=== PATIENT | male | born 1980 | race Caucasian/White ===

== ENCOUNTER 2018-04-17 10:11 | Inpatient (IN) | payer OTHER ==
[2018-04-17] MEDS ORDERED: Propofol 1,000 MG/100 ML VIAL IV ONE ×2 (10:17→15:37)
[2018-04-17 10:34] LABS: Bilirubin Negative (Negative); Blood, Urine Trace (Negative); Clarity CLEAR (Clear); Glucose, Urine (Dipstick) Negative (Negative); Leukocyte Negative (Negative); Nitrite Negative (Negative); Protein, Urine (Dipstick) 30 mg/dL (Neg-Trace)
[2018-04-17 10:36] LABS: Bacteria/HPF None Seen HPF (None Seen); Hyaline Casts/LPF 0-3 HYALINE CAST LPF (0-3 Hyaline); Pathc Cast-AUWi Flag 0.14 (0-2.49); RBC/HPF 0-3 HPF (0-3); Squamous Epithelial None Seen HPF (0-3); WBC/HPF 0-3 HPF (0-3)
[2018-04-17 10:37] LABS: Hemoglobin 15.6 g/dL (14.0-18.0); Mean Corpuscular HGB CONC 34.6 g/dL (32.0-36.0); Mean Corpuscular Hemoglobin 33.8 pg (27.0-31.0); Mean Corpuscular Volume 97.6 fl (80.0-94.0); Mean Platelet Volume 7.3 fL (7.4-10.4); Platelet Count 196 thou/uL (130-400); RBC Distribution Width 11.4 % (11.5-14.5); Red Blood Cell (RBC) Count 4.63 mill/uL (4.70-6.10); White Blood Cell (WBC) Count 19.2 thou/uL (4.8-10.8)
[2018-04-17 10:41] LABS: INR-International Normal Ratio 1.1; Prothrombin Time 14.1 SEC (12.0-14.7)
[2018-04-17 10:42] LABS: PTT 24.5 SEC (22.9-36.1)
[2018-04-17] MEDS ORDERED: manNITOL 20% 500 ML ONE (10:44)
[2018-04-17 10:54] LABS: Amphetamine Not Detected (NotDetected); Barbiturates Screen Not Detected (NotDetected); Benzodiazepine Screen Not Detected (NotDetected); Cocaine Metabolite Screen Not Detected (NotDetected); Medtox Control Line Valid? VALID (VALID); Medtox Reader # READER 1; Methadone Not Detected (NotDetected); Methamphetamine Not Detected (NotDetected); Opiate Screen Detected (NotDetected); Oxycodone Screen Not Detected (NotDetected); Phencyclidine (PCP) Not Detected (NotDetected); THC/Cannabinoid Screen Not Detected (NotDetected); Tricyclic Screen Not Detected (NotDetected)
[2018-04-17] MEDS ORDERED: Fentanyl 100 MCG/2 ML VIAL ONE ×2 (10:56→11:04)
[2018-04-17 10:58] LABS: Actual Bicarbonate (HCO3a) 19.5 mEq/L (22-28); Base Excess (BEa) -6.2 mEq/L (-2.0 to +3.0); CO2 Tension 39.4 mmHg (35.0-45.0); Hemoglobin (Hb) 13.8 g/dL (14.0-18.0); O2 Tension (PaO2) 306.4 mmHg (80.0-100.0); pH, Arterial 7.31 (7.35-7.45)
[2018-04-17 10:59] LABS: Analyzer IN Cardio ER; Calcium, Ionized 1.1 mmol/L (1.12-1.30); Puncture Site LBA
[2018-04-17] MEDS ORDERED: Sodium Chloride 0.9% 20 ML ONE (10:59)
[2018-04-17] MEDS ORDERED: Lidocaine 0.5%/Epinephrine 1:200,000 50 ml Vial ONE (10:59)
[2018-04-17] MEDS ORDERED: Thrombin 5000 UNITS/5 ML VIAL ONE (11:00)
[2018-04-17] MEDS ORDERED: Bacitracin Zinc Ointment 30 gm TUBE ONE (11:00)
[2018-04-17 11:01] LABS: Glucose 193 mg/dL (70-105)
[2018-04-17] MEDS ORDERED: CEFAZOLIN/Water 2 GM/20 ML SYRINGE ONE (11:02)
[2018-04-17 11:03] LABS: ALT (SGPT) 46 U/L (8-55); AST (SGOT) 43 U/L (5-34); Acetaminophen Less than 6.0 mcg/mL (10.0-30.0); Albumin 4.4 g/dL (3.5-5.0); Alcohol Less than 10 mg/dL (Less than 10); Alkaline Phosphatase 106 U/L (40-150); Anion Gap 19 mmol/L (10-20); BUN (Urea Nitrogen) 11 mg/dL (8.9-20.6); Bilirubin, Total 0.5 mg/dL (0.2-1.2); Calc. Creatinine Clearance 0 mL/min (70-130); Calcium 9.5 mg/dL (7.8-10.44); Carbon Dioxide 18 mmol/L (22-29); Chloride 105 mmol/L (98-107); Estimated GFR-MDRD Greater than 90; Globulin 3.3 g/dL (2.4-3.5); Protein, Total 7.7 g/dL (6.0-8.3); Salicylate Less than 8.0 mg/dL (15.0-30.0); Sodium 139 mmol/L (136-145)
[2018-04-17] MEDS ORDERED: Vecuronium 10 MG VIAL ONE (11:18)
[2018-04-17] MEDS ORDERED: Water For Inject, Bacteriostat 30 ML ONE (11:19)
--- NOTE | 2018-04-17 11:20 | RAD ---
PORTABLE CHEST 1 VIEW: Date: 04/17/18 Time: 1019 hours HISTORY: Respiratory failure. FINDINGS/IMPRESSION: There is an endotracheal tube with tip at level of clavicular heads and nasogastric tube can be trace d into the level of the distal stomach. Heart size is normal. No lobar consolidation, pneumothoraces, or large effusions are seen. POS: [facility]
[2018-04-17 11:23] LABS: Band 2 % (5-11); Eosinophils 3 % (0-10); Lymphocytes 31 % (21-51); MDiff Complete? YES; Monocytes 10 % (0-10); Neutrophil 50 % (42-75); PLT Morphology Comment Appears Adequate; Polychromasia SLIGHT = 2-3 cells (100X) (0-2/hpf); Reactive Lymphocytes 4 % (0-10)
[2018-04-17] MEDS ORDERED: Potassium Chloride 40 MEQ in Premix Bag 1 BAG IVPB SCH (11:30)
--- NOTE | 2018-04-17 11:41 | CT ---
CT BRAIN WITHOUT CONTRAST: HISTORY: Level I trauma. Head trauma. Altered mental status. FINDINGS: There is a large right acute epidural hematoma along the right temporal and parietal lobes. The larg er portion, along the right temporoparietal lobe, measures about 7 x 3 cm. Adjacent calvarial fractu re of the right temporal bone is seen. There is a tiny amount of pneumocephalus. There is a 12 mm m idline shift to the left. There are multiple fractures involving the facial bones. Fractures also i nvolve the base of the skull and the right sphenoid bone in the lateral lobe of the left sphenoid sin us. There is fluid in the left maxillary sinuses and in both ethmoid and sphenoid sinuses. There is soft tissue air in the visualized portions of the face and periorbital regions on either side and pe riorbital soft tissue swelling, predominantly on the left. IMPRESSION: Acute right epidural hematoma with midline shift to the left; calvarial and facial bone fractures. Discussed over the telephone with Dr. Freeman at 10:49 a.m. CODE CR POS: [facility]
--- NOTE | 2018-04-17 11:43 | CT ---
CT CERVICAL SPINE NONCONTRAST: HISTORY: Neck injury. FINDINGS: Intracranial hematoma and mastoid injuries are partially visualized and better detailed on separate e xams. Vertebral body height and alignment of the cervical spine are intact. The cervicothoracic junction i s maintained. There is minimal displacement of fragmentation of the left lateral process of C6. This extends to th e posterolateral aspect of the vertebral canal. Endotracheal catheter and nasogastric tube are partially visualized. No other fractures are apparent . IMPRESSION: Comminuted, minimally displaced fracture involving the C6 left transverse process. No unstable injur y is apparent. The findings were called to Dr. Freeman at 10:54 hours. CODE CR POS: [facility]
[2018-04-17] MEDS ORDERED: Albumin 5% 500 ML ONE (12:10)
--- NOTE | 2018-04-17 12:13 | RAD ---
PORTABLE CHEST: HISTORY: Line placement. COMPARISON: Earlier examination from the same day. FINDINGS: Endotracheal and NG tubes remain in position. A left subclavian line is seen. The catheter tip is o verlying the superior vena cava. No signs of pneumothorax. IMPRESSION: Placement of left subclavian line. No signs of pneumothorax on this supine film. POS: [facility]
--- NOTE | 2018-04-17 12:31 | CT ---
CT FACIAL BONES PERFORMED WITHOUT CONTRAST ENHANCEMENT: HISTORY: Machinery accident. The patient was hit with a piece of metal above the left eye. FINDINGS: There is evidence of extensive facial bone trauma. Changes are more left-sided. On the right side, the right zygomatic arch is intact. There is air within the soft tissues in a lef t periorbital location. This was associated with a fracture, which involves the lateral wall of the left orbit and extends to involve the frontal process of the zygomatic bone. Along the superior aspe ct of the orbit, there actually appears to be some air within the extraconal space of the orbit. The re is a nondisplaced fracture of the medial wall of the right orbit, and there is an air-fluid level within the right frontal sinus. This is associated with posterior wall frontal sinus fractures, whic h are slightly more right-sided. No fracture of the right maxilla. No orbita floor fracture on the right. The left side shows much more extensive injury. This includes a zygomatic arch fracture, which is mi nimally displaced, anterior wall and lateral wall, as well as medial wall maxillary sinus fractures, and a blow-out fracture of the orbital floor with a somewhat inferiorly displaced fragment. I do not see any obvious entrapment of extraocular muscles. The defect in the orbital floor is approximately 6 mm. The fracture also involves the supraorbital rim on the left. There is also medial wall orbit al and lateral wall orbital fractures. Fracture lines are also seen to extend into the sphenoid bone , with the fracture on the right extending into the right middle cranial fossa, and then communicatin g with the posterior ethmoid air cells and sphenoid air cells on the right. There is a more signific ant fracture of the lateral wall of the left side of the sphenoid, where there is comminution and an inwardly displaced bone fragment extending into the sphenoid sinus, causing a 6 mm gap, with direct c ommunication with the temporal lobe. There is also opacification of the right mastoid air cells and middle ear. A temporal bone fracture is seen, and the large epidural hematoma on the right is noted, with mass effect. Please refer to the CT report for additional findings. Fracture is also seen to involve the left temporal bone, at the level of the middle cranial fossa. The pterygoid processes are intact. No mandibular fracture is seen. IMPRESSION: Extensive facial bone trauma, which is more left-sided, as discussed above. POS: [facility]
--- NOTE | 2018-04-17 12:35 | OP ---
DATE OF PROCEDURE: 04/17/2018 PREOPERATIVE DIAGNOSES: 1. Acute severe traumatic brain injury. 2. Large right epidural hematoma with cerebral edema. 3. Acute posttraumatic respiratory failure. 4. Acute lactic acidosis. POSTOPERATIVE DIAGNOSES: 1. Acute severe traumatic brain injury. 2. Large right epidural hematoma with cerebral edema. 3. Acute posttraumatic respiratory failure. 4. Acute lactic acidosis. PROCEDURES PERFORMED: Placement of triple lumen left subclavian central venous catheter. INDICATIONS FOR PROCEDURE: A 37-year-old man suffered a blunt trauma to the head with the aforementi oned injuries. Decision was made to place a central venous catheter for hemodynamic monitoring and to facilitate the rapeutic interventions. DESCRIPTION OF PROCEDURE: The patient was placed in a supine position. Left chest wall sterilely pr epped and draped in usual fashion. The skin below the left clavicle was anesthetized with 1% lidocai ne. The left subclavian vein was cannulated with an 18-gauge introducer needle returning dark venous blood. Guidewire was passed through this needle and advanced into the left subclavian vein without resistance. Needle was withdrawn over the guidewire. A stab incision was made adjacent to the guide wire using an 11 scalpel. A dilator was passed over the guidewire dilating subcutaneous tissues. Th e dilator was removed and a triple-lumen central venous catheter was advanced over the guidewire and placed in the left subclavian vein without resistance and stopping at the 18 cm alondra. The guidewire was removed. Dark venous blood was aspirated from all 3 ports which were then individually flushed w ith saline. Catheter secured to the anterior chest wall using 3-0 silk suture at 2 points. Sterile dressings were applied. The patient tolerated this operation without any apparent complication and r emains hemodynamically stable following completion of the procedure. Chest x-ray confirmed proper pl acement and no pneumothorax present.
--- NOTE | 2018-04-17 13:02 | HP ---
DATE OF ADMISSION: 04/17/2018 HISTORY OF PRESENT ILLNESS: Mr. Arceo is a 37-year-old man who was struck in the head and face by a heavy metal object while at work. He suffered loss of consciousness. He was brought by EMS to [facility] in [place], [place]. Patient's initial [place] coma scale at the scene was reported at 9. H e arrived combative and agitated with a [place] coma scale of E4 V3 M5. Due to rapidly deteriorating neurological function, patient was electively intubated to protect his airway and to facilitate a ti igna workup. He had severe external markers of trauma about his head and face. PAST MEDICAL HISTORY: Obtained from chart review, which reveals history of chronic depression and PT SD. PAST SURGICAL HISTORY: The patient has had no significant past surgeries. SOCIAL HISTORY: He is a who suffers from PTSD. He currently works in a [employer]. He smokes half pack of cigarettes per day for approximately 16 years. He indulges in a moderate amount of ethanol occasionally. He has no history of illicit drug abuse. FAMILY HISTORY: Unknown as the patient was adopted. PREHOSPITAL MEDICATIONS: Unknown. ALLERGIES: Patient has no known drug allergies. REVIEW OF SYSTEMS: Could not be obtained as patient has a progressively worsening neurological funct ion and was in the process of rapid sequence intubation upon my arrival. PHYSICAL EXAMINATION: VITAL SIGNS: Initial vital signs include blood pressure 141/64, pulse 101, respiratory rate 20, temp erature 95.4 degrees Fahrenheit, oxygen saturation was 100% being bagged. HEENT: Reveals a 5 cm left supraorbital scalp laceration. The patient has bilateral periorbital ecc hymosis and swelling. Both pupils equally round and reactive to light at 2 mm bilaterally. He has l eft-sided forehead cephalohematoma present. NECK: Cervical spine immobilized in a C-collar, maintaining neutral position as the patient has dist racting injuries. Trachea is otherwise midline. CHEST: Chest wall is stable. No gross deformities or step-offs are present. HEART: Reveals regular rate and rhythm, no murmurs or gallops auscultated. LUNGS: Clear to auscultation bilaterally. Breathing regular and unlabored. ABDOMEN: Soft, nontender, nondistended. Liver and spleen nonpalpable below costal margins. EXTREMITIES: Reveals 2+ radial and pedal pulses bilaterally. No ankle edema is present. NEUROLOGIC: Reveals no focal deficits, although [place] coma scale suggest rapidly declining neurolo gical function secondary to blunt head trauma. Thoracic and lumbar spine palpated free of any abnorm alities or step-offs once patient was log rolled. MUSCULOSKELETAL: Prior to intubation revealed a 5/5 muscle strength in bilateral upper and lower ext remities. PERTINENT LABORATORY DATA: Today includes a CBC with 19,200 white blood cells, hemoglobin 15.6, mary ann tocrit is 45.2, and platelet count is 196,000. PTT and INR normal at 24.5 seconds and 1.1 respective ly. Metabolic profile: Sodium 139, potassium is 3.0, chloride is 105, bicarb 18, BUN 11, creatinine 0.89, glucose 193. Lactic acid 7.2, total bilirubin 0.5, AST and ALT 43 and 46 respectively. Urina lysis was essentially unremarkable. PERTINENT RADIOGRAPHIC FINDINGS: Includes a chest x-ray which revealed no acute intrathoracic pathol ogy. CT scan of the brain is remarkable for a 7 x 3 cm large right temporal epidural hematoma with a 12 mm right to left midline shift. Also noted is multiple skull base fractures. CT scan of the cer vical spine reveals a nondisplaced left transverse process fracture of C6. Facial CT scan reveals mu ltiple facial fractures including bilateral orbital fractures, right alevism, bilateral sphenoid sinus and left zygomatic/maxillary complex fractures. IMPRESSION: 1. Status post blunt trauma to the head. 2. Acute severe traumatic brain injury secondary to a large right temporal epidural hematoma with 12 mm right to left midline shift. 3. Cerebral edema. 4. Multiple facial fractures. 5. Multiple skull base fractures. 6. A 5 cm left supraorbital scalp laceration. 7. Acute posttraumatic respiratory failure. 8. Acute hypokalemia. 9. Acute lactic acidosis. PLAN: 1. Urgent neurosurgical consultation and consideration for an emergent craniectomy. 2. Patient is given 100 grams of mannitol during resuscitation. 3. We will temporarily hyperventilate the patient to end-tidal CO2 of 35-40 mmHg. 4. We will correct abnormal electrolytes. 5. We will continue with full mechanical ventilatory support until the patient is neurologically nor mal postoperatively. Above findings and plan was discussed with the patient's adoptive mother upon h er presentation. She indicates understanding of information given. Total critical care time is 80 minutes.
[2018-04-17] MEDS ORDERED: Sodium Bicarb 50 MEQ/50 ML Abboject 8.4% SYRINGE ONE ×2 (13:45→15:33)
--- NOTE | 2018-04-17 14:18 | OP ---
DATE OF SURGERY: 04/17/2018 SURGEON: Loli Wilkes M.D. NOTE SPECIALIST: Jose Miguel Reid PA-C. PREOPERATIVE INDICATION: Prevent . PREOPERATIVE DIAGNOSES: Epidural hematoma, right side; temporal bone fracture, right side; worsening coma. POSTOPERATIVE DIAGNOSES: Epidural hematoma, right side; temporal bone fracture, right side; worsenin g coma. OPERATIVE PROCEDURE: Right frontotemporal craniotomy, evacuation of epidural hematoma, plate and scr ew fixation of the temporal bone fracture. PREOPERATIVE MEDICATION: Ancef 2 grams IV, mannitol 1 gram per kilogram. DRAIN NUMBER: Zero. DRAIN TYPE: None. OPERATIVE DICTATION: The patient was brought to the operating room. He had previously been intubate d. General anesthesia was induced. The head was gently turned to the left and supported by gel-fill ed donut-shaped head rest and the right shoulder with gently bumped. We removed hair from the right side of the scalp with electric clippers. There was significant bleeding from a deep laceration over the left eyebrow. This was carefully reapproximated and palma placed to control bleeding. Pressu re was applied with a pressure dressing during the surgical case. We marked out our right-sided inci nelli from the root of the zygoma curving posteriorly and then anteriorly again towards the vertex. U nder a planned incision, we infused local anesthetic. We opened with a 10-blade knife and controlled bleeding with bipolar cautery. We used monopolar cautery to dissect through to the periosteal layer . We folded the scalp flap forward and held it in place under fishhooks. The temporalis muscle was taken as a separate layer. We placed erna holes at the root of the zygoma, the frontal keyhole, and the posterior portion of the superior temporal line. We stripped the dura with a [employer] 3 dissecto r through the erna holes and then connected the erna holes in the frontotemporal craniotomy with a si de cutting bit and a foot plate. There was a very large epidural hematoma seen over the temporal lob e. This was evacuated quickly. There was a meningeal bleeder on the dura with a significant arteria l output that was coagulated until it was controlled. There was a temporal bone fracture that extend ed into the floor of the middle fossa and there was some very slow bone oozing from there. We placed Surgicel in the fracture fragment and controlled it with pressure alone. There was some bleeding po steriorly, which was venous in nature, which was controlled. We irrigated copiously with bacitracin irrigation. We removed the foot plate from the high-speed drill and placed small holes along the aircraft designer niotomy defect for tackup sutures. We tacked up the dura with 4-0 silk suture in multiple areas to p revent reaccumulation of the epidural hematoma. On the back table of the craniotomy flap included th e fractured portion of the temporal bone, which was separate from the flap itself and these were reap proximated with plates and screws and then titanium plates were placed over the entire bone flap. We drilled through the bone flap for sleeper stitches and passed the drill tackup stitches through the dura in the center of the craniotomy. Passed those and sent those sutures through the bone flap. Th e bone flap was reapproximated with plates and screws. We tightened our tackup stitches, we irrigati ng once again with bacitracin irrigation. We then closed the scalp in anatomic layers and applied a sterile dressing. This was a clean case and no contamination.
[2018-04-17] MEDS ORDERED: Dextrose 5% in Water 1,000 ML IV PRN ×2 (15:04→15:39)
[2018-04-17] MEDS ORDERED: Dextrose 50% Abboject 50 ML SYRINGE SLOW IVP PRN ×2 (15:04→15:39)
[2018-04-17 15:09] LABS: Lactic Acid 4.3 mmol/L (0.5-2.2)
[2018-04-17 15:17] LABS: CO2 Tension 40.6 mmHg (35.0-45.0); pH, Arterial 7.37 (7.35-7.45)
[2018-04-17 15:18] LABS: Base Excess (BEa) -2.1 mEq/L (-2.0 to +3.0); Calcium, Ionized 1.2 mmol/L (1.12-1.30); Hematocrit-ABG 28.2 % (42.0-52.0); Hemoglobin (Hb) 9.8 g/dL (14.0-18.0); O2 Tension (PaO2) 184.6 mmHg (80.0-100.0); Puncture Site LINE
[2018-04-17] MEDS ORDERED: Labetalol 100 MG/20 ML MDV ONE (15:33)
[2018-04-17] MEDS ORDERED: PHENYLEPHRINE-NS 100 MCG/ML 10 ML SYRINGE ONE (15:33)
[2018-04-17] MEDS ORDERED: Calcium Chloride 1 GM/10 ML Abboject SYRINGE ONE (15:33)
[2018-04-17] MEDS ORDERED: ePHEDrine/0.9% NaCl/PF SYRINGE 50 mg/10 ml ONE (15:33)
[2018-04-17] MEDS ORDERED: PROPOFOL 20 ML ONE (15:35)
[2018-04-17] MEDS ORDERED: Fentanyl CADD 250 ML IVPB SCH (15:45)
[2018-04-17] MEDS ORDERED: Propofol BOLUS 1,000 MG/100 ML VIAL IV PRN (15:48)
[2018-04-17] MEDS ORDERED: fentaNYL Citrate/PF 2,000 MCG in Sodium Chloride 0.9% 60 ML IV SCH (15:52)
[2018-04-17] MEDS ORDERED: Fentanyl BOLUS 250 ML IVPB PRN (15:52)
[2018-04-17 16:08] LABS: #Lymphocytes 1.4 thou/uL (1.20-3.40); #Monocytes 1.2 thou/uL (0.11-0.59); %Eosinophils 0.3 % (0.0-10.0); %Lymphocytes 8.8 % (21.0-51.0); %Monocytes 7.5 % (0.0-10.0); %Neutrophils 83.4 % (42.0-75.0); Hemoglobin 10.3 g/dL (14.0-18.0); Mean Corpuscular HGB CONC 34.8 g/dL (32.0-36.0); Mean Corpuscular Hemoglobin 34.5 pg (27.0-31.0); Mean Corpuscular Volume 99.2 fl (80.0-94.0); Mean Platelet Volume 7.5 fL (7.4-10.4); Platelet Count 125 thou/uL (130-400); RBC Distribution Width 11.3 % (11.5-14.5); Red Blood Cell (RBC) Count 2.97 mill/uL (4.70-6.10); White Blood Cell (WBC) Count 15.6 thou/uL (4.8-10.8)
[2018-04-17 16:16] LABS: Anion Gap 11 mmol/L (10-20); BUN (Urea Nitrogen) 9 mg/dL (8.9-20.6); Calc. Creatinine Clearance 193 mL/min (70-130); Calcium 8.3 mg/dL (7.8-10.44); Carbon Dioxide 24 mmol/L (22-29); Chloride 111 mmol/L (98-107); Estimated GFR-MDRD Greater than 90; Glucose 118 mg/dL (70-105); Magnesium 1.6 mg/dL (1.6-2.6); Phosphorus 3.2 mg/dL (2.3-4.7); Potassium 4.9 mmol/L (3.5-5.1); Sodium 141 mmol/L (136-145)
[2018-04-17] MEDS: NS 0.9% w/ 40 MEQ KCL 1,000 ML IV SCH (17:51)
[2018-04-17] MEDS ORDERED: Calcium Chloride 1 GM/10 ML Abboject SYRINGE IVP SCH (18:30)
[2018-04-17 18:45] LABS: INR-International Normal Ratio 1.2; PTT 27.1 SEC (22.9-36.1); Prothrombin Time 15.9 SEC (12.0-14.7)
[2018-04-17 18:59] LABS: Actual Bicarbonate (HCO3a) 23.7 mEq/L (22-28); Base Excess (BEa) 0.7 mEq/L (-2.0 to +3.0); CO2 Tension 38.1 mmHg (35.0-45.0); Hemoglobin (Hb) 9.2 g/dL (14.0-18.0); O2 Tension (PaO2) 165.1 mmHg (80.0-100.0); pH, Arterial 7.41 (7.35-7.45)
[2018-04-17 19:00] LABS: Calcium, Ionized 1.1 mmol/L (1.12-1.30); Puncture Site ART LINE
[2018-04-17 19:01] LABS: ALV-art Gradient 68.875 (0-20)
--- NOTE | 2018-04-17 19:21 | PRG ---
DATE OF SERVICE: 04/17/2018 SUBJECTIVE: I saw Mr. Waylon Arceo in the hallway on the way to the operating room. He is a 37-year-o ld gentleman who was injured at work by metal object striking him in the head. He suffered a skull f racture, was brought to the emergency department. There, deep laceration to the face, a skull fractu re, a small transverse process fracture around C6 and some facial fractures were identified. In kirt tion, a large epidural hematoma on the right side under the temporal bone fracture was a concerning f inding. Neurosurgery was consulted and we asked for administration of mannitol and a quick trip to t operating room. I caught up to the stretcher in the way to the operating room where I found an in tubated gentleman on his way to the OR. Had been given a paralytic and therefore, the pupillary reac tion or any neurological examination was gone. We took him to the operating room for a right frontot emporal craniotomy, evacuation of epidural hematoma.
--- NOTE | 2018-04-17 20:07 | CON ---
DATE OF CONSULTATION: 04/17/2018 Jose Miguel Reid PA-C dictating for Dr. Danilo Canada. This is a 30-minute initial patient evaluation which greater than 50% of the exam was spent counselin g, coordinating the patient's care. Remainder of the exam was spent in review of patient's medical r ecords and appropriate imaging studies. CHIEF COMPLAINT: Status post head trauma at work with enlarging right-sided epidural hematoma. HISTORY OF PRESENT ILLNESS: Mr. Arceo is a 37-year-old male who was struck in the head and face and subsequently left clavicle by a heavy metal pipe while at work today. History and physical is obtain ed through review of patient's medical records. By report, the patient's initial GCS was 9, but was rapidly declining and therefore, the decision to intubate while in the ER was made by our trauma fallon eagues. They have asked us to review the patient's head CT that shows right temporal mildly displace d skull fracture with subsequent right epidural hematoma. Due to the emergent nature of the injury, the patient was rushed immediately from the ER to the OR. When I saw the patient on physical exam, t he patient is seen in the OR and he is currently intubated. By report, his right pupil was 4-5 mm an d the left pupil was pinpoint and fixed. There were significant raccoon eyes bilaterally and a large roughly 5 cm left eyebrow and forehead laceration. There also appears to be significant trauma to t he left clavicle. Given this, the patient's GCS currently is 3T E1 V1 M1. IMPRESSION AND DIAGNOSIS: Status post head trauma with enlarging right epidural hematoma. PLAN: I have discussed the patient's case with Dr. Canada and his imaging studies. Given discussion s between Dr. Wilkes and Dr. Canada, Dr. Wilkes has agreed to take the patient emergently to [facility] which will be a right craniotomy with right temporal bone fracture repair and evacuation of rig ht temporal epidural hematoma and all other indicated procedures. Again, due to the emergent nature of this injury, the patient has been taken straight to the OR. We will update the family as we can. It should be noted that the patient was seen initially in the OR close to 11:45 a.m. but this dictati on is late given again the emergent nature of the medical condition.
[2018-04-17] MEDS: CEFAZOLIN/Water 2 GM/20 ML SYRINGE SLOW IVP SCH (20:49)
[2018-04-17] MEDS: Senokot S 8.6-50 MG TAB PO SCH (20:54)
[2018-04-17] MEDS ORDERED: CEFAZOLIN 2 GM in Sodium Chloride 0.9% 100 ML IVPB SCH (22:00)
[2018-04-17] MEDS: Propofol 1,000 MG/100 ML VIAL IV PRN (23:06)
[2018-04-17] MEDS ORDERED: Acetaminophen 650 MG Suppository PR PRN (23:52)
[2018-04-18] MEDS: CEFAZOLIN/Water 2 GM/20 ML SYRINGE SLOW IVP SCH ×3 (04:14→20:31)
[2018-04-18] MEDS: NS 0.9% w/ 40 MEQ KCL 1,000 ML IV SCH ×2 (04:15→15:33)
[2018-04-18 04:48] LABS: #Lymphocytes 0.9 thou/uL (1.20-3.40); #Monocytes 0.9 thou/uL (0.11-0.59); #Neutrophils 7.5 thou/uL (1.40-6.50); %Basophils 0.1 % (0.0-1.0); %Eosinophils 0.2 % (0.0-10.0); %Lymphocytes 9.8 % (21.0-51.0); %Monocytes 9.5 % (0.0-10.0); %Neutrophils 80.4 % (42.0-75.0); Hemoglobin 8.2 g/dL (14.0-18.0); Mean Corpuscular Hemoglobin 33.6 pg (27.0-31.0); Mean Corpuscular Volume 98.8 fl (80.0-94.0); Mean Platelet Volume 7.3 fL (7.4-10.4); Platelet Count 116 thou/uL (130-400); RBC Distribution Width 11.5 % (11.5-14.5); Red Blood Cell (RBC) Count 2.45 mill/uL (4.70-6.10); White Blood Cell (WBC) Count 9.4 thou/uL (4.8-10.8)
[2018-04-18 04:55] LABS: Anion Gap 12 mmol/L (10-20); BUN (Urea Nitrogen) 9 mg/dL (8.9-20.6); Calc. Creatinine Clearance 196 mL/min (70-130); Calcium 8.7 mg/dL (7.8-10.44); Carbon Dioxide 24 mmol/L (22-29); Chloride 112 mmol/L (98-107); Estimated GFR-MDRD Greater than 90; Glucose 141 mg/dL (70-105); Magnesium 1.6 mg/dL (1.6-2.6); Phosphorus 3.2 mg/dL (2.3-4.7); Potassium 4.1 mmol/L (3.5-5.1); Sodium 144 mmol/L (136-145)
[2018-04-18 05:04] LABS: INR-International Normal Ratio 1.3; PTT 30.9 SEC (22.9-36.1); Prothrombin Time 16.1 SEC (12.0-14.7)
[2018-04-18] MEDS: Propofol 1,000 MG/100 ML VIAL IV PRN ×4 (05:59→20:36)
--- NOTE | 2018-04-18 07:53 | CT ---
PRELIMINARY REPORT/[facility]/EMERGENCY AFTER HOURS PROCEDURE: EXAM: CT Head Without Intravenous Contrast EXAM DATE/TIME: Exam ordered 04/18/2018 3:44 AM CLINICAL HISTORY: 37 years old, male; Condition or disease; Other: Hematoma; Prior surgery; Surgery date: Postoperative (0-2 days); Surgery type: Craniotomy; Patient HX: F/u right epidural hematoma TECHNIQUE: Axial computed tomography images of the head/brain without intravenous contrast. COMPARISON: CT Brain WO Con 2018-04-17 10:40 FINDINGS: Brain: No midline shift or brain edema. There is trace RIGHT frontal convexity subdural hemorrhage. Ventricles: Normal. No ventriculomegaly. Bones/joints: Post RIGHT frontotemporal craniotomy with evacuation of a RIGHT epidural hematoma. Ther e is inferior/posterior LEFT orbital wall fracture, incompletely visualized. Soft tissues: There is RIGHT frontotemporal scalp soft tissue swelling. Sinuses: There is hemorrhage filling the paranasal sinus. Mastoid air cells: Unremarkable as visualized. No mastoid effusion. Orbits: There is small LEFT supraorbital hematoma with overlying surgical palma. IMPRESSION: Post RIGHT frontotemporal craniotomy evacuation of a RIGHT epidural hematoma. No midline shift or brain edema. Thank you for allowing us to participate in the care of your patient. Dictated and Authenticated by: Nathan Martinez MD 04/18/2018 4:33 AM Central Time ([place] & [place]) FINAL REPORT CT HEAD NONCONTRAST: DATE: 04/18/18. TIME: Performed on an emergency basis at 0345 hours. HISTORY: Epidural hematoma. Followup. COMPARISON: 04/17/18. FINDINGS: Findings agree with the preliminary report by Dr. Hernandez from [facility]. There has been inter christina evacuation of the right frontotemporal epidural hematoma with minimal residual fluid. No new abn ormalities. POS: [facility]
--- NOTE | 2018-04-18 08:08 | RAD ---
CHEST 1 VIEW: Date: 04/18/18 HISTORY: Respiratory failure. Follow-up. COMPARISON: 04/17/18. FINDINGS: Cardiac silhouette is magnified by projection. Pulmonary vasculature is upper limits of normal and ac centuated by shallow inspiration. Mediastinum is midline. Lines and tubes are unchanged in position. night monitor leads overlie the chest. Left clavicular fracture is again demonstrated. IMPRESSION: Stable post-traumatic appearance of the chest. POS: [facility]
[2018-04-18] MEDS ORDERED: ADMIXTURE FEE IVPB SCH (08:15)
[2018-04-18] MEDS ORDERED: SODIUM CHLORIDE IVPB SCH (08:15)
[2018-04-18] MEDS ORDERED: MAGNESIUM SULFATE IVPB SCH (08:15)
[2018-04-18] MEDS ORDERED: Magnesium Sulfate 4 GM, Admixture Fee 1 EACH in Sodium Chloride 0.9% 250 ML 250 ML IVPB SCH (08:30)
[2018-04-18] MEDS: Bisacodyl 10 MG SUPP PR SCH (08:32)
[2018-04-18] MEDS: Pantoprazole 40 MG VIAL IVP SCH (08:34)
[2018-04-18] MEDS: Polyethylene Glycol 3350 17 GM Packet PO SCH (08:55)
[2018-04-18] MEDS: Senokot S 8.6-50 MG TAB PO SCH ×2 (08:55→20:32)
--- NOTE | 2018-04-18 10:37 | PRG ---
DATE OF SERVICE: 04/18/2018 SUBJECTIVE: Mr. Arceo is postoperative day #1 from right temporal epidural hematoma evacuation. His postoperative head CT appears excellent. With decompression of his intracranial compartment and nor malization of his anatomic structures, I am very pleased with how he looks radiologically. I should note on exam he moves all extremities to command and appears to be normalizing as well regarding his neurologic status. He has a skull base fracture and obviously facial fractures. We will continue to watch him for rhinorrhea. I should note he may have a small fracture in the left transverse process and lateral mass of the left C6-C7 regions. This may be a nutrient foramen. Nevertheless, we will continue him in a collar as he certainly has reason to have cervical spine or he certainly may have m ild cervical spine injury. Overall, I am very pleased with his outcome thus far.
--- NOTE | 2018-04-18 11:08 | OP ---
SURGEON: Kelly Wilkes M.D. SECRETARY OFFICE CLERK SURGEON: Jose Miguel Reid PA-C. POSTOPERATIVE DIAGNOSES: 1. Right epidural hematoma. 2. Blunt force trauma to the head. PROCEDURE PERFORMED: Right craniotomy for epidural hematoma evacuation in the temporal region with r epair of the skull fracture and all indicated procedures. ESTIMATED BLOOD LOSS: 400 mL SPECIMENS REMOVED: None. DESCRIPTION OF THE PROCEDURE: .
--- NOTE | 2018-04-18 13:14 | PRG ---
DATE OF SERVICE: 04/18/2018 SUBJECTIVE: The patient is currently in the Critical Care Unit. He is hospital day #2, postop day # 1, from being struck in the head in an industrial accident. The patient suffered a large right-sided epidural hematoma, temporal bone fractures, and was taken emergently to the operating room to underg o a right frontotemporal craniotomy, evacuation of epidural hematoma, plate and screw fixation of tem poral bone fracture. The patient tolerated this procedure well and was following commands preoperati vely and again postoperatively. Overnight, there were no issues. This morning, the patient states t hat his pain is somewhat controlled and he is able to answer by nodding his head or giving a thumbs u p. The patient is currently intubated and is on a ventilatory support, though he is overbreathing th e vent. We are awaiting evaluation by the oral maxillofacial surgeon, Dr. Gill, to see if his fac ial fractures require surgery. We will also have the patient evaluated by Orthopedics for his left c lavicle fracture should he require surgical intervention, and we will make our best efforts to coordi michael this so that they can both happen under 1 anesthesia. If they are to be done in a delayed fashi on, we will consider extubating the patient tomorrow. PHYSICAL EXAMINATION: VITAL SIGNS: Temperature is 98.8, heart rate 71, blood pressure 126/61. [place] coma scale E1 V1T M 6. Patient has E1 due to significant periorbital ecchymosis that makes it unable for him to open his eyes. HEENT: Head: His dressing in surgical site is clean, dry, and intact. Face: Significant periorbit al ecchymosis bilaterally. Ears: Have dried blood bilaterally. Nose: Again dried blood bilaterall y. Oropharynx: ET tube is in place. OG tube is in place. NECK: Hixson collar is in place. Trachea is midline. No JVD. CHEST: Scant rhonchi on the left. Right is clear to auscultation. HEART: Regular rate and rhythm. ABDOMEN: Soft, flat, nontender with active bowel sounds. EXTREMITIES: The patient moves all 4 extremities, has sensation in all 4 extremities, and pulses are 2+. LABORATORY FINDINGS: White blood cell count 9.4, hemoglobin 8.2, hematocrit 24.2, platelets 116. So dium is 144, potassium 4.1, chloride 112, CO2 of 24, BUN 9, creatinine 0.75, glucose 141, magnesium 1 .6, phosphorus 3.2. RADIOGRAPHS: Repeat head CT without contrast shows interval evacuation of right frontal temporal epi dural hematoma with minimal residual fluid. AP chest x-ray is unchanged, stable. ASSESSMENT AND PLAN: 1. Status post severe blunt trauma to head. 2. Acute severe traumatic brain injury secondary to a large right temporal epidural hematoma with a 12 mm right to left midline shift, status post right craniotomy. 3. Cerebral edema, being treated with mannitol, discontinued. 4. Multiple facial fractures. 5. Multiple basilar skull fractures. 6. A 5 cm left supraorbital scalp laceration, repaired. 7. Acute posttraumatic respiratory failure. 8. Hypomagnesemia. PLAN: Will be to replace his electrolytes and continue supportive care on the ventilator. Consultat ions to Orthopedics, OMFS, and Ophthalmology. We will reevaluate the patient tomorrow once the consu ltants have notified us of any surgical plans. The evaluation and examination were done with Dr. Codi morrison during rounds this morning.
[2018-04-19] MEDS: NS 0.9% w/ 40 MEQ KCL 1,000 ML IV SCH ×3 (00:43→12:06)
[2018-04-19] MEDS: Propofol 1,000 MG/100 ML VIAL IV PRN ×2 (01:19→05:27)
--- NOTE | 2018-04-19 02:12 | CON ---
DATE OF CONSULTATION: 04/18/2018 CHIEF COMPLAINT: Status post head trauma hit with a large metal object with an epidural hematoma, mu ltiple facial fractures. HISTORY OF PRESENT ILLNESS: Mr. 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 He was seen in the ER an d taken emergently for intubation and evacuation of a right epidural hematoma by Neurosurgery. Curre ntly, he is in the ICU, intubated and sedated in stable condition. He was noted to have multiple fac ial fractures on CT scan of the face. For these, I was consulted. PAST MEDICAL HISTORY: Depression and PTSD. PAST SURGERY AND SOCIAL HISTORY: Patient has medical with history of PTSD. Smokes a half pa ck a day, approximately 8-pack years. Moderate alcohol use. No history of illicit drug abuse. He w orks in a machine shop. FAMILY HISTORY: Unknown. MEDICATIONS: The patient takes no home medications. ALLERGIES: The patient has no known drug allergies. REVIEW OF SYSTEMS: Could not be obtained. The patient is intubated and sedated. PHYSICAL EXAMINATION: VITAL SIGNS: Patient's vital signs are stable. GENERAL: He is currently afebrile. HEENT: Patient has a large compressive head dressing on. He has generalized gross facial swelling, periorbital ecchymosis, and edema. He has an endotracheal tube, oral in place with a tube smith, th is is obstructing most of the view of the oral cavity and jaws. He has no visible lacerations that a re open. His eyes are swollen shut, but upon forceful opening, his pupils are both fixed and dilated , but this was due to the patient's recent dilation by Dr. Cervantes, Ophthalmology. IMAGING: CT scan of the face shows multiple facial lacerations, most notably displaced fractures of the left superior and inferior orbital rims as well as a left orbital floor, multiple skull base frac tures as well as a right superior orbital rim fracture. ASSESSMENT: A 37-year-old male status post injury from a large metal object with multiple facial fra ctures, most notably left orbital floor fracture, and left orbital rim fracture. The patient current ly has a large amount of facial edema. PLAN: The plan will be to wait for resolution of swelling and extubation of the patient to evaluate facial fractures.
[2018-04-19] MEDS: CEFAZOLIN/Water 2 GM/20 ML SYRINGE SLOW IVP SCH (04:20)
--- NOTE | 2018-04-19 06:09 | CON ---
DATE OF CONSULTATION: 04/18/2018 REQUESTING PHYSICIAN: Dr. Vito Freeman HISTORY OF PRESENT ILLNESS: Mr. Arceo is a 37-year-old gentleman who was examined in the ICU. He wa s at work when he was struck in the face and head by a heavy metal object. There was loss of conscio usness and upon initial evaluation at the scene was reported to have a [place] coma scale of 9. He w as brought to the operating room and intubation was performed. The patient was found to have a sever e head injury and Neurosurgery consulted. We do not have a neurologic exam on the patient prior to i ntubation and sedation. At this time, he is still sedated on a ventilator which significantly limits this examination. PAST MEDICAL HISTORY: Not obtainable from the patient, by chart review history of depression. PAST SURGICAL HISTORY: No apparent surgeries per chart review. SOCIAL HISTORY: As per the history and physical at the time of admission is remarkable for a gentlem an who does have a history of cigarette smoking and does use alcohol on a regular basis. FAMILY HISTORY: Unknown. MEDICATIONS: Unknown. ALLERGIES: Per chart shown no known drug allergies. PHYSICAL EXAMINATION: VITAL SIGNS: He is found to have a temperature of 99.9, heart rate of 83, respiratory rate of 16, bl ood pressure of 125/54. GENERAL: The patient upon inspection is found to have severe facial edema and ecchymoses. This exte nds into the left upper shoulder and anterior chest wall. He does have a central line exiting the le ft anterior shoulder as well. Palpation along the shoulder shows a step off at the left clavicle. P assive motion of bilateral shoulders, elbows, wrists does not reveal any obvious crepitation and agai n the patient is not responding to pain at this time. His lower extremities appear atraumatic as parra s his pelvis. LABORATORY DATA: He was found to have a white count of 9.4, hematocrit 24.2 and 116,000 platelets. RADIOGRAPHIC FINDINGS: At the time of admission include a significant epidural hematoma on CT of the head. CT of the neck remarkable for a left transverse process fracture at C6 and chest x-ray shows a left clavicle fracture that is transverse in orientation and mildly displaced. ASSESSMENT: A 37-year-old gentleman with severe head and facial injury and with a left clavicle frac ture and no other obvious extremity injuries. PLAN: At this point in time, there is no urgency to proceed with open reduction internal fixation. The fracture is mildly displaced and certainly can be handled and cared for nonsurgically at this august e. If subsequent x-rays of the clavicle show significant displacement, if the patient's condition wa rrants we can certainly proceed with a delayed open reduction internal fixation. However, I do not b elieve there is any benefit to this patient for his current care in stabilizing this fracture. We wi ll follow patient expectantly while he is in the hospital.
[2018-04-19 09:04] LABS: #Lymphocytes 0.8 thou/uL (1.20-3.40); #Monocytes 0.8 thou/uL (0.11-0.59); #Neutrophils 7.8 thou/uL (1.40-6.50); %Basophils 0.1 % (0.0-1.0); %Eosinophils 0.3 % (0.0-10.0); %Lymphocytes 8.6 % (21.0-51.0); %Monocytes 8.5 % (0.0-10.0); %Neutrophils 82.4 % (42.0-75.0); Hemoglobin 7.4 g/dL (14.0-18.0); Mean Corpuscular HGB CONC 34.5 g/dL (32.0-36.0); Mean Corpuscular Hemoglobin 34.6 pg (27.0-31.0); Mean Platelet Volume 7.7 fL (7.4-10.4); Platelet Count 104 thou/uL (130-400); RBC Distribution Width 11.1 % (11.5-14.5); Red Blood Cell (RBC) Count 2.14 mill/uL (4.70-6.10); White Blood Cell (WBC) Count 9.5 thou/uL (4.8-10.8)
[2018-04-19 09:17] LABS: Anion Gap 10 mmol/L (10-20); BUN (Urea Nitrogen) 8 mg/dL (8.9-20.6); Calc. Creatinine Clearance 222 mL/min (70-130); Calcium 8.3 mg/dL (7.8-10.44); Carbon Dioxide 23 mmol/L (22-29); Chloride 111 mmol/L (98-107); Estimated GFR-MDRD Greater than 90; Glucose 115 mg/dL (70-105); Magnesium 2.3 mg/dL (1.6-2.6); Phosphorus 1.6 mg/dL (2.3-4.7); Potassium 4.2 mmol/L (3.5-5.1); Sodium 140 mmol/L (136-145)
[2018-04-19] MEDS ORDERED: Morphine 10 MG/ML VIAL SLOW IVP PRN (09:26)
[2018-04-19] MEDS: Pantoprazole 40 MG VIAL IVP SCH (09:37)
[2018-04-19] MEDS: Bisacodyl 10 MG SUPP PR SCH (09:38)
[2018-04-19] MEDS: Polyethylene Glycol 3350 17 GM Packet PO SCH (09:38)
[2018-04-19] MEDS: Senokot S 8.6-50 MG TAB PO SCH ×2 (09:38→20:43)
--- NOTE | 2018-04-19 09:42 | RAD ---
ABDOMEN 1 VIEW: History Dobbhoff placement. FINDINGS: Mid abdomen and right upper quadrant are included. The remainder of the abdomen is not imaged. Visu alized bowel gas pattern is nonspecific. Metallic tip of the Dobbhoff feeding tube overlies the midline upper abdomen at the expected location of the gastric body. Left-sided central venous catheter is partially visualized with the tip over t he cavoatrial junction. IMPRESSION: Dobbhoff feeding tube tip over expected location of gastric body. POS: NAOMY
[2018-04-19] MEDS: Acetaminophen 1,000 MG in Premix Bag 1 BAG IVPB SCH ×2 (10:19→17:14)
[2018-04-19] MEDS: Dexamethasone 4 mg/ml Vial SLOW IVP SCH ×3 (10:20→20:34)
--- NOTE | 2018-04-19 11:04 | PRG ---
DATE OF SERVICE: 04/19/2018 Mr. Arceo is postoperative day 2 from right-sided craniotomy for epidural hematoma evacuation. He mcneal s had an excellent clinical and radiological result postoperatively. He this morning is following co mmands briskly in all 4 extremities, although I would say he is a bit more delayed in the left upper extremity related to his orthopedic injury, not neurologic. He remains with significant swelling in the face. He is on Decadron as ordered by Dr. Freemna to reduce airway edema. We will continue to fol low. I should note there is no evidence of CSF rhinorrhea.
[2018-04-19] MEDS: Piperacillin/Tazobactam 4.5 GM in Sodium Chloride 0.9% 100 ML IVPB SCH ×2 (11:05→17:15)
[2018-04-19] MEDS: Morphine 10 MG/ML VIAL SLOW IVP PRN ×3 (11:26→20:35)
--- NOTE | 2018-04-19 11:42 | PRG ---
DATE OF SERVICE: 04/19/2018. SUBJECTIVE: Mr. Arceo is a 37-year-old man who suffered a blunt force trauma to the head. He suffer ed a large right temporal epidural hematoma of which the patient is postop day #1 status post craniec bri and evacuation of the said epidural hematoma. He also had multiple facial fractures, which is s table. He was sedated on mechanical ventilator support overnight. When sedation is weaned, the raman ent moves all extremities and follows commands. He is unable to open his eyes due to significant rigo ateral orbital edema. [place] coma scale therefore noted at E1, M6, V1t. PHYSICAL EXAMINATION: VITAL SIGNS: This morning includes blood pressure 125/59, pulse 80, respiratory rate 10, maximum tem perature in the last 24 hours is 100.4 degrees Fahrenheit, oxygen saturation is 99% on FIO2 of 30% on mechanical ventilator support. GENERAL: He has foul smelling pulmonary secretions. HEENT: Reveals a significant facial swelling, especially bilateral periorbital area. Trachea remain s at midline. HEART: Reveals regular rate and rhythm, no murmurs or gallops auscultated. LUNGS: Clear to auscultation bilaterally. Breathing is regular and unlabored. ABDOMEN: Soft, nontender and nondistended. NEUROLOGIC: Reveals no focal deficits present. LABORATORY DATA: This morning includes a CBC with 9500 white blood cells, hemoglobin and hematocrit are 7.4 and 21.4 respectively. Platelet count is 104,000. Metabolic profile: Sodium 140, potassium is 4.2, chloride is 111, bicarbonate is 23, BUN is 8, creatinine 0.67, glucose is 115, phosphorus is 1.6, magnesium is 2.3. X-RAY FINDINGS: There is no chest x-ray this morning. IMPRESSION: 1. Post-injury day #1, status post blunt force trauma to the head. 2. Multiple facial fractures. 3. Resolved right temporal epidural hematoma as noted on repeat postoperative CT scan of the brain. 4. Acute posttraumatic respiratory failure, improving. 5. Acute hypophosphatemia. 6. Likely acute pneumonia and evolution given the purulent pulmonary secretions. PLAN: 1. Obtain pulmonary secretions and continue antibiotic therapy until the microbiology of the pulmona ry secretions is returned. 2. Wean the patient to extubation. When the endotracheal cuff was deflated this morning, there was minimum air leak to suggest likely soft tissue edema to that and we will start the patient on Decadro n 4 mg every 6 hours for 24 hours just 4 doses. 3. Correct abnormal electrolytes. Above findings and plan discussed with the patient and family at bedside. Total critical care time is 40 minutes.
[2018-04-19] MEDS ORDERED: Sodium Phosphate 30 MMOL in Sodium Chloride 0.9% 250 ML 250 ML IVPB SCH (13:00)
[2018-04-19] MEDS: hydrALAZINE 20 MG/ML VIAL SLOW IVP PRN ×2 (15:31→18:04)
[2018-04-19] MEDS ORDERED: Ondansetron HCl/PF 4 MG/2 ML Vial SLOW IVP PRN (18:57)
[2018-04-19] MEDS ORDERED: [UNRECOGNIZED DRUG - REMARK] FS SCH (19:00)
[2018-04-19] MEDS ORDERED: Lorazepam 2 MG/ML VIAL SLOW IVP SCH (22:30)
[2018-04-20] MEDS ORDERED: Metoprolol Tartrate 25 MG TAB PO SCH (00:30)
[2018-04-20 00:54] LABS: Hemoglobin 7.5 g/dL (14.0-18.0); Platelet Count 112 thou/uL (130-400)
[2018-04-20] MEDS: Piperacillin/Tazobactam 4.5 GM in Sodium Chloride 0.9% 100 ML IVPB SCH ×3 (01:21→11:32)
[2018-04-20] MEDS: Acetaminophen 1,000 MG in Premix Bag 1 BAG IVPB SCH ×2 (01:21→05:17)
[2018-04-20] MEDS: NS 0.9% w/ 40 MEQ KCL 1,000 ML IV SCH ×2 (01:22→05:18)
[2018-04-20] MEDS: Dexamethasone 4 mg/ml Vial SLOW IVP SCH (04:51)
[2018-04-20 05:07] LABS: #Basophils 0.1 thou/uL (0.0-0.2); #Lymphocytes 0.9 thou/uL (1.20-3.40); #Monocytes 0.7 thou/uL (0.11-0.59); #Neutrophils 11.5 thou/uL (1.40-6.50); %Basophils 0.4 % (0.0-1.0); %Eosinophils 0.1 % (0.0-10.0); %Lymphocytes 6.6 % (21.0-51.0); %Monocytes 5.7 % (0.0-10.0); %Neutrophils 87.3 % (42.0-75.0); Hemoglobin 7.2 g/dL (14.0-18.0); Mean Corpuscular HGB CONC 34.6 g/dL (32.0-36.0); Mean Corpuscular Hemoglobin 34.3 pg (27.0-31.0); Mean Corpuscular Volume 99.1 fl (80.0-94.0); Mean Platelet Volume 7.4 fL (7.4-10.4); Platelet Count 128 thou/uL (130-400); RBC Distribution Width 11.2 % (11.5-14.5); Red Blood Cell (RBC) Count 2.11 mill/uL (4.70-6.10); White Blood Cell (WBC) Count 13.1 thou/uL (4.8-10.8)
[2018-04-20 05:30] LABS: Anion Gap 9 mmol/L (10-20); BUN (Urea Nitrogen) 11 mg/dL (8.9-20.6); Calc. Creatinine Clearance 210 mL/min (70-130); Calcium 9.1 mg/dL (7.8-10.44); Carbon Dioxide 25 mmol/L (22-29); Chloride 111 mmol/L (98-107); Estimated GFR-MDRD Greater than 90; Glucose 136 mg/dL (70-105); Magnesium 2.1 mg/dL (1.6-2.6); Potassium 4.1 mmol/L (3.5-5.1); Sodium 141 mmol/L (136-145)
[2018-04-20 05:31] LABS: Phosphorus 1.9 mg/dL (2.3-4.7)
[2018-04-20] MEDS: Morphine 10 MG/ML VIAL SLOW IVP PRN (06:50)
[2018-04-20] MEDS ORDERED: traMADol HCl 50 MG TAB PO PRN (08:13)
[2018-04-20] MEDS ORDERED: Morphine 10 MG/ML VIAL SLOW IVP PRN (08:16)
[2018-04-20] MEDS ORDERED: Sodium Phosphate 30 MMOL in Sodium Chloride 0.9% 250 ML 250 ML IVPB SCH (08:45)
[2018-04-20] MEDS: Pantoprazole 40 MG VIAL IVP SCH (09:09)
[2018-04-20] MEDS: Senokot S 8.6-50 MG TAB PO SCH ×2 (09:10→21:10)
[2018-04-20] MEDS: Bisacodyl 10 MG SUPP PR SCH (09:10)
[2018-04-20] MEDS: Polyethylene Glycol 3350 17 GM Packet PO SCH (09:10)
[2018-04-20] MEDS: traMADol HCl 50 MG TAB PO PRN ×3 (09:19→23:56)
--- NOTE | 2018-04-20 09:19 | PRG ---
DATE OF SERVICE: 04/20/2018 NEUROSURGERY NOTE SUBJECTIVE: Mr. Arceo was extubated yesterday. He is now 3 days out from craniotomy for evacuation of epidural hematoma. He asked for his arms to be removed from restraints. Each time that is done, he begins to pull out his NG tube, remove his cervical collar and grab the central line. Blood press ure has been under reasonable control, his heart rate has been in the 100s this morning. Mr. Arceo is awake. He asked me who I am. He converses well. His eyes are swollen and shut, but hi s other cranial nerves are working well. I do not find any lateralizing motor or sensory deficits. I reviewed the imaging, the transverse process fracture C6 is not destabilizing. If he removes his c ollar, it is only making it harder for that fracture to heal. However, is not destabilizing the spin e and should be low risk even if they were to remove the collar. The scalp and face could be washed today and gently. I will defer to Trauma Surgery as to when to ge t him out of the ICU with his tachycardia, but from our perspective, he can move any time.
[2018-04-20] MEDS: Ascorbic Acid 500 mg Chewable Tablet PO SCH ×2 (09:20→21:10)
--- NOTE | 2018-04-20 10:26 | PRG ---
DATE OF SERVICE: 04/20/2018 SUBJECTIVE: Mr. Arceo is a 37-year-old man, who suffered blunt force trauma to the head, resulting in multiple facial and skull base fractures. He also is status post evacuation of a large right temporal epidural hematoma. The patient is sleepy this morning, but easily awakens to voice. He moves all extremities and follows commands. His [place] coma scale is E3 V4 M6. There is a significant improvement with regard to the facial swelling overnight. The patient has adequate urinary output. PHYSICAL EXAMINATION: VITAL SIGNS: This morning includes blood pressure 139/87, pulse is 118, respiratory rate is 16, maximum temperature in the last 24 hours is 98.9 degrees Fahrenheit, oxygen saturation is 94% on room air. HEENT EXAMINATION: Reveals a significant decrease in facial swelling. There is also a decrease in the periorbital edema, although patient opens his eyes with some difficulty due to swelling. Extraocular muscles are, otherwise, intact. HEART: Reveals regular rate with sinus tachycardia. No murmurs or gallops auscultated. LUNGS: Clear to auscultation bilaterally. Breathing is regular and unlabored. ABDOMEN: Soft, nontender, nondistended. Liver and spleen nonpalpable below costal margin. EXTREMITIES: Reveal 2+ radial and pedal pulses bilaterally. No ankle edema is present. NEUROLOGICAL EXAMINATION: Reveals no focal deficits present. LABORATORY DATA: Pertinent laboratory findings today includes CBC with 13,100 white blood cells, hemoglobin 7.2, hematocrit is 20.9, platelet count is 128, 000. Metabolic profile: Sodium 141, potassium is 4.1, chloride is 111, bicarbonate is 25, BUN 11, creatinine 0.71, glucose 136, phosphorus is 1.9, magnesium is 2.1. Respiratory culture : Many Pseudomonas , on Zosyn IMPRESSION: 1. Post-injury day #3, status post blunt trauma to the head. 2. Postoperative day #3, status post craniectomy and evacuation of large right epidural hematoma. Patient is neurologically stable. 3. Multiple facial and skull base fractures, stable. 4. Acute hypophosphatemia. 5. Acute blood loss anemia, stable. 6. Pseudomonas Pneumonia PLAN: 1. Correct abnormal electrolytes. 2. We will ask speech pathologist to evaluate the patient for cognition, swallow, and speech. 3. We will discontinue a [place] catheter and restraints and increase activity per physical and occupational therapy. 4. We will consider transferring the patient to the floor today if he maintains intentional function, once restraints have been discontinued. 5. Change antibiotics to Cipro MTDD
[2018-04-20] MEDS: Acetaminophen 500 MG TAB PO SCH ×3 (12:42→23:56)
[2018-04-20] MEDS: Ferrous Sulfate 325 MG TAB PO SCH (18:11)
[2018-04-20] MEDS: hydrALAZINE 20 MG/ML VIAL SLOW IVP PRN ×2 (21:10→23:57)
[2018-04-20] MEDS: Ibuprofen 600 MG TAB PO PRN (21:10)
[2018-04-20] MEDS: Ciprofloxacin 500 MG TAB PO SCH (21:10)
[2018-04-21] MEDS: Ibuprofen 600 MG TAB PO PRN ×2 (06:53→14:27)
[2018-04-21] MEDS: Ciprofloxacin 500 MG TAB PO SCH ×2 (06:53→21:11)
[2018-04-21] MEDS: Acetaminophen 500 MG TAB PO SCH ×5 (06:53→23:39)
[2018-04-21] MEDS: Pantoprazole 40 MG VIAL IVP SCH (08:04)
[2018-04-21] MEDS: Bisacodyl 10 MG SUPP PR SCH (08:04)
[2018-04-21] MEDS: Ferrous Sulfate 325 MG TAB PO SCH ×2 (08:04→16:37)
[2018-04-21] MEDS: Ascorbic Acid 500 mg Chewable Tablet PO SCH ×2 (08:04→21:10)
[2018-04-21] MEDS: Polyethylene Glycol 3350 17 GM Packet PO SCH ×2 (08:05→15:42)
[2018-04-21] MEDS: Senokot S 8.6-50 MG TAB PO SCH ×2 (08:05→21:11)
--- NOTE | 2018-04-21 08:12 | PRG ---
DATE OF SERVICE: 04/21/2018 NEUROSURGERY NOTE SUBJECTIVE: Mr. Arceo is 4 days out from craniotomy for evacuation of epidural hematoma from a work injury. He was transferred out of the ICU yesterday. This morning, Mr. Arceo is agitated. He is complaining of pain everywhere, his shoulders hurt, his n martín hurts and his head hurt. He has removed his own cervical collar. I do not see any recorded fevers in the last 24 hours. His other vital signs are relatively stable. Mr. Arceo is awake this morning. His eyes have ecchymosis bilaterally and swelling keeps them shut. The wounds are well approximated. Mr. Arceo has good receptive and expressive language function. All 4 extremities are moving well. He has good sensation and motor function in the fingers and toes. Mr. Arceo continues to complain about his neck pain. I told him that wearing a cervical collar would heel the transverse process fracture C6 faster and he would better pain control if he keeps it on. He needs to be reminded of this constantly. Anticipate slow, but steady neurological improvement. P lacement will be an issue as he is currently agitated and needs reminding to stay in bed constantly. His judgment will be a question making safety a real concern.
[2018-04-21] MEDS: hydrALAZINE 20 MG/ML VIAL SLOW IVP PRN ×2 (08:45→16:51)
[2018-04-21] MEDS: traMADol HCl 50 MG TAB PO PRN ×2 (08:46→14:27)
[2018-04-21 09:54] LABS: #Lymphocytes 1.9 thou/uL (1.20-3.40); #Monocytes 0.7 thou/uL (0.11-0.59); #Neutrophils 8.5 thou/uL (1.40-6.50); %Basophils 0.3 % (0.0-1.0); %Eosinophils 0.3 % (0.0-10.0); %Lymphocytes 16.9 % (21.0-51.0); %Monocytes 6.6 % (0.0-10.0); %Neutrophils 75.9 % (42.0-75.0); Hemoglobin 7.4 g/dL (14.0-18.0); Mean Corpuscular HGB CONC 34.2 g/dL (32.0-36.0); Mean Corpuscular Hemoglobin 34.3 pg (27.0-31.0); Mean Platelet Volume 6.9 fL (7.4-10.4); Platelet Count 154 thou/uL (130-400); RBC Distribution Width 11.6 % (11.5-14.5); Red Blood Cell (RBC) Count 2.16 mill/uL (4.70-6.10); White Blood Cell (WBC) Count 11.2 thou/uL (4.8-10.8)
[2018-04-21 10:08] LABS: Anion Gap 12 mmol/L (10-20); BUN (Urea Nitrogen) 20 mg/dL (8.9-20.6); Calc. Creatinine Clearance 212 mL/min (70-130); Calcium 8.8 mg/dL (7.8-10.44); Carbon Dioxide 23 mmol/L (22-29); Chloride 109 mmol/L (98-107); Estimated GFR-MDRD Greater than 90; Glucose 142 mg/dL (70-105); Magnesium 1.9 mg/dL (1.6-2.6); Phosphorus 2.2 mg/dL (2.3-4.7); Potassium 3.4 mmol/L (3.5-5.1); Sodium 141 mmol/L (136-145)
[2018-04-21] MEDS ORDERED: Potassium Phosphate 30 MMOL in Sodium Chloride 0.9% 250 ML 250 ML IVPB SCH (10:45)
--- NOTE | 2018-04-21 11:59 | PRG ---
DATE OF SERVICE: 04/21/2018 SUBJECTIVE: The patient is a 37-year-old man who is currently on the surgical floor. He is status p ost significant blunt force trauma to the head, which he sustained a large epidural hematoma, which w as subsequently emergently evacuated by Dr. Wilkes. The patient this morning had a large bowel mo vement. His cousin reports that he has been pretty tired since then. There are no reports of events overnight. The patient is still awaiting evaluation by Speech for a swallow study. From reports, lena zavala was unable to safely do this yesterday. The patient is tolerating his tube feeds and they are at g oal. OBJECTIVE: VITAL SIGNS: Temperature is 98.1, heart rate 103, blood pressure 153/82, respirations 18, oxygen sat uration 92% on room air. GENERAL: The patient is lying comfortably in bed, appears in no distress. He is asleep, but he was easily awakened with my voice and he will follow simple commands. The amount of facial swelling appe ars markedly decreased. HEENT: Head: [place] are all clean, dry, and intact. The patient still has bilateral periorbital e cchymosis with decreased swelling and facial swelling overall. Dobbhoff tube is in place. Ears are atraumatic without discharge. Oropharynx appears clear. NECK: Tender to palpation to the left side. His trachea is midline. No JVD. LUNGS: Chest is clear to auscultation with good inspiratory and expiratory effort. HEART: Regular rate and rhythm. ABDOMEN: Soft, flat, nontender with active bowel sounds. Pelvis is stable. EXTREMITIES: Neurovascularly intact x4. LABORATORY DATA: White blood cell count 11.2, hemoglobin 7.4, hematocrit 21.6, platelets 154. Sodiu m 141, potassium 3.4, chloride 109, CO2 23, BUN 20, creatinine 0.69, glucose 142. Magnesium 1.9, chana sphorus 2.2. There are no radiographs to review this morning. ASSESSMENT AND PLAN: 1. Status post blunt force trauma to the head. 2. Significant large right temporal epidural hematoma, status post craniotomy to evacuate a large he matoma. 3. Multiple facial and skull base fractures, stable, awaiting reevaluation in delayed fashion due to his severe swelling. 4. Hypokalemia. 5. Hypophosphatemia. 6. Pneumonia. PLAN: Continue supportive care. Await speech evaluation for swallow. Replace electrolytes. Contin ue antibiotics and await placement decision. The evaluation and examination were done and discussed with Dr. Freeman during rounds this morning.
[2018-04-21] MEDS: Metoprolol Tartrate 25 MG TAB PO SCH (21:11)
[2018-04-22] MEDS: Ibuprofen 600 MG TAB PO PRN ×3 (00:06→18:30)
[2018-04-22] MEDS: traMADol HCl 50 MG TAB PO PRN ×3 (00:06→15:26)
[2018-04-22] MEDS: Ciprofloxacin 500 MG TAB PO SCH ×2 (05:09→21:09)
[2018-04-22] MEDS: Acetaminophen 500 MG TAB PO SCH ×3 (05:09→18:30)
[2018-04-22 05:35] LABS: Anion Gap 11 mmol/L (10-20); BUN (Urea Nitrogen) 16 mg/dL (8.9-20.6); Calc. Creatinine Clearance 212 mL/min (70-130); Carbon Dioxide 24 mmol/L (22-29); Chloride 109 mmol/L (98-107); Estimated GFR-MDRD Greater than 90; Glucose 95 mg/dL (70-105); Magnesium 2.1 mg/dL (1.6-2.6); Phosphorus 3.2 mg/dL (2.3-4.7); Potassium 3.7 mmol/L (3.5-5.1); Sodium 140 mmol/L (136-145)
[2018-04-22 07:20] LABS: #Eosinphils 0.1 thou/uL (0.0-0.7); #Lymphocytes 2.2 thou/uL (1.20-3.40); #Monocytes 0.9 thou/uL (0.11-0.59); %Basophils 0.2 % (0.0-1.0); %Eosinophils 0.6 % (0.0-10.0); %Lymphocytes 21.7 % (21.0-51.0); %Monocytes 8.8 % (0.0-10.0); %Neutrophils 68.6 % (42.0-75.0); Hemoglobin 7.9 g/dL (14.0-18.0); Mean Corpuscular HGB CONC 34.9 g/dL (32.0-36.0); Mean Corpuscular Hemoglobin 34.7 pg (27.0-31.0); Mean Corpuscular Volume 99.6 fl (80.0-94.0); Mean Platelet Volume 7.3 fL (7.4-10.4); Platelet Count 190 thou/uL (130-400); RBC Distribution Width 12.1 % (11.5-14.5); Red Blood Cell (RBC) Count 2.26 mill/uL (4.70-6.10); White Blood Cell (WBC) Count 10.3 thou/uL (4.8-10.8)
[2018-04-22 08:06] LABS: Band 18 % (5-11); Lymphocytes 26 % (21-51); MDiff Complete? YES; Metamyelocyte 1 % (0-0); Monocytes 5 % (0-10); Neutrophil 50 % (42-75); Nucleated RBC 1 % (0); Polychromasia MODERATE = 3-4 cells (100X) (0-2/hpf)
[2018-04-22] MEDS: Metoprolol Tartrate 25 MG TAB PO SCH ×2 (08:10→21:09)
[2018-04-22] MEDS: Senokot S 8.6-50 MG TAB PO SCH ×2 (08:11→20:16)
[2018-04-22] MEDS: Ferrous Sulfate 325 MG TAB PO SCH ×2 (08:11→17:14)
--- NOTE | 2018-04-22 08:33 | RAD ---
TWO VIEWS OF THE LEFT CLAVICLE: DATE: 04/22/18. COMPARISON: None. HISTORY: Fracture. FINDINGS: There is an obliquely oriented fracture involving the junction of the middle third and lateral third of the left clavicle. There is superior soft tissue swelling. The lateral fracture fragment is displaced inferiorly by 1.8 cm and there is distraction at the fract ure site measuring 1.6 cm. Mild comminution is noted. IMPRESSION: Left clavicle fracture as above. POS: NAOMY
--- NOTE | 2018-04-22 09:23 | PRG ---
DATE OF SERVICE: 04/22/2018 Mr. Arceo is now postoperative day #5, having undergone a right-sided epidural hematoma evacuation. The patient continues to improve. He is opening his eyes more, although does have significant bilate ral eye ecchymosis. He is having a hard time keeping his eyes open, but they are more open than when I saw him on Sunday. He is interactive during the exam and is conversant appropriately. He complai ns of more or less full body pain, but complains of bilateral temporal headache, left clavicle pain a nd facial pain. On physical exam, he is awake, alert, and appropriate. He moves all 4 extremities spontaneously and to command. There is no drainage from his nose or ears and his incision is clean, dry, and intact, c losed with palma and healing well. He is not currently wearing his [place] collar and states that he feels much better without it. Although given his left C6 transverse process fracture. We will cont inue to monitor him neurologically, but he is overall improving. I have discussed with the patient mega collier and his nurse that I would prefer that he wear his collar any time he is ambulating, especia lly when he is ambulating, but this is limited due to significant left clavicle pain and bruising. I will also discussed this with Dr. [place]. Please call with any questions or changes. Otherwise, th e patient is improving very well neurologically.
[2018-04-22] MEDS: Ascorbic Acid 500 mg Chewable Tablet PO SCH ×2 (10:23→21:09)
[2018-04-22] MEDS: Pantoprazole 40 MG VIAL IVP SCH (10:23)
[2018-04-22] MEDS: Bisacodyl 10 MG SUPP PR SCH (10:23)
[2018-04-22] MEDS: Polyethylene Glycol 3350 17 GM Packet PO SCH (10:24)
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
[2018-04-22] MEDS ORDERED: CEFAZOLIN/Water 2 GM/20 ML SYRINGE SLOW IVP SCH (16:30)
[2018-04-22] MEDS: Aluminum & Magnesium Hydroxide 60 ML, Lidocaine 2% Viscous Solution 30 ML, diphenhydrAM... SSW PRN (18:32)
[2018-04-23] MEDS: Sodium Chloride 0.9% 1,000 ML IV SCH ×4 (00:26→20:47)
[2018-04-23] MEDS: traMADol HCl 50 MG TAB PO PRN ×2 (00:26→06:46)
[2018-04-23] MEDS: Acetaminophen 500 MG TAB PO SCH ×4 (00:26→20:47)
[2018-04-23] MEDS: Ciprofloxacin 500 MG TAB PO SCH ×2 (06:46→20:47)
[2018-04-23] MEDS: Ibuprofen 600 MG TAB PO PRN (06:46)
[2018-04-23] MEDS: Ascorbic Acid 500 mg Chewable Tablet PO SCH ×2 (09:11→20:47)
[2018-04-23] MEDS: Ferrous Sulfate 325 MG TAB PO SCH ×2 (09:11→17:59)
[2018-04-23] MEDS: Bisacodyl 10 MG SUPP PR SCH (09:12)
[2018-04-23] MEDS: Polyethylene Glycol 3350 17 GM Packet PO SCH (09:12)
[2018-04-23] MEDS: Senokot S 8.6-50 MG TAB PO SCH ×2 (09:13→20:48)
[2018-04-23] MEDS: Metoprolol Tartrate 25 MG TAB PO SCH ×2 (09:29→20:48)
--- NOTE | 2018-04-23 10:03 | PRG ---
DATE OF SERVICE: 04/23/2018 Mr. Arceo is now on floor care. He endorses headache and overall generalized pain, not surprising gi deirdre his mechanism of injury. He is neurologically intact; however. He is not wearing his cervical c ollar and frankly his left C6 transverse process fracture I think is a stable injury and if the raman ent is not tolerating the collar I am fine with that. I think it would help with his pain in his nec k, but he prefers not to wear it. His wound is healing well. Disposition is the main issue.
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
[2018-04-23] MEDS ORDERED: CEFAZOLIN/Water 2 GM/20 ML SYRINGE ONE (11:50)
[2018-04-23] MEDS ORDERED: Morphine 4 MG/ML VIAL ONE (12:38)
[2018-04-23] MEDS ORDERED: PROPOFOL 200 MG/20 ML VIAL ONE (13:19)
[2018-04-23] MEDS ORDERED: Ondansetron HCl/PF 4 MG/2 ML Vial ONE (13:19)
[2018-04-23] MEDS ORDERED: Lidocaine 1% PF 5 ML VIAL ONE (13:19)
[2018-04-23] MEDS ORDERED: Succinylcholine Chloride 20 MG/ML 10 ml SYRINGE FS ONE (13:19)
[2018-04-23] MEDS ORDERED: Fentanyl 100 MCG/2 ML VIAL ONE ×5 (13:34→16:23)
[2018-04-23 14:12] LABS: Actual Bicarbonate (HCO3a) 17.3 mEq/L (22-28); Base Excess (BEa) -7.1 mEq/L (-2.0 to +3.0); CO2 Tension 31.7 mmHg (35.0-45.0); Hemoglobin (Hb) 12.1 g/dL (14.0-18.0); O2 Tension (PaO2) 459.3 mmHg (80.0-100.0); pH, Arterial 7.36 (7.35-7.45)
[2018-04-23 14:14] LABS: Analyzer IN Cardio OR; Puncture Site ALINE
[2018-04-23] MEDS ORDERED: HYDROmorphone 2 MG/ML VIAL SLOW IVP PRN (15:17)
[2018-04-23] MEDS ORDERED: HYDROmorphone 0.5 MG/0.5 ML SYRINGE ONE ×4 (15:39→16:09)
[2018-04-23] MEDS ORDERED: Ibuprofen 600 MG TAB PO SCH (16:15)
[2018-04-23] MEDS: Ketorolac Tromethamine 30 MG/ML VIAL IVP SCH ×2 (17:57→23:45)
[2018-04-23] MEDS: cloNIDine 0.1 MG TAB PO SCH ×2 (17:58→23:49)
[2018-04-23] MEDS: traMADol HCl 50 MG TAB PO SCH ×2 (17:59→23:48)
[2018-04-24] MEDS: Acetaminophen 500 MG TAB PO SCH (03:33)
[2018-04-24] MEDS: Ketorolac Tromethamine 30 MG/ML VIAL IVP SCH (05:15)
[2018-04-24] MEDS: traMADol HCl 50 MG TAB PO SCH ×3 (05:16→18:26)
[2018-04-24] MEDS: cloNIDine 0.1 MG TAB PO SCH ×3 (05:16→18:25)
[2018-04-24] MEDS: Ciprofloxacin 500 MG TAB PO SCH ×2 (05:16→20:17)
[2018-04-24] MEDS ORDERED: Acetaminophen/Codeine 30-300mg Tablet PO PRN (07:48)
--- NOTE | 2018-04-24 08:30 | RAD ---
LEFT CLAVICLE TWO VIEWS: History: ORIF Comparison: Prior day. FINDINGS: Satisfactory post-operative appearance of the left clavicular fracture. IMPRESSION: Satisfactory post-operative appearance. POS: TPC
[2018-04-24] MEDS: Ascorbic Acid 500 mg Chewable Tablet PO SCH ×2 (09:16→22:15)
[2018-04-24] MEDS: Metoprolol Tartrate 25 MG TAB PO SCH ×2 (09:16→20:19)
[2018-04-24] MEDS: Ferrous Sulfate 325 MG TAB PO SCH ×2 (09:16→18:26)
[2018-04-24] MEDS: Senokot S 8.6-50 MG TAB PO SCH ×2 (09:16→20:19)
--- NOTE | 2018-04-24 09:16 | PRG ---
DATE OF SERVICE: 04/20/2018 TIME: Approximately 08:30 a.m. SUBJECTIVE: The patient was recently extubated yesterday. He is still confused, but does follow sim ple commands. OBJECTIVE: The patient's vital signs are stable. He is afebrile. Facial exam: The patient still d oes have a large amount of bilateral facial swelling, periorbital edema, and ecchymoses. The patient has quite a large amount of chemosis in the left eye; however, he does endorse a gross visual acuity in both eyes, and he does have his extraocular movements intact. His pupils are equal, round, and r eactive to light and accommodation. His occlusion is good and repeatable. His maxilla is stable wit h non-mobile. IMAGING: CT scans reviewed showing a minimally displaced facial fractures, most notably orbital floo r and rims. ASSESSMENT: A 37-year-old male status post work-related injury with facial fractures. PLAN: I would like to see patient in 1 week from now, once swelling has resolved to reevaluate fract ures. The patient may not need surgery if no diplopia or enophthalmos develops, but we will continue to follow.
[2018-04-24] MEDS: Polyethylene Glycol 3350 17 GM Packet PO SCH (09:17)
[2018-04-24] MEDS: Bisacodyl 10 MG SUPP PR SCH (09:17)
[2018-04-24] MEDS: Acetaminophen/Codeine 30-300mg Tablet PO PRN ×2 (09:18→22:14)
[2018-04-24] MEDS ORDERED: Pregabalin 50 MG CAP PO SCH (11:15)
[2018-04-24] MEDS: Ibuprofen 600 MG TAB PO SCH ×2 (11:43→20:17)
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
[2018-04-24] MEDS: Sodium Chloride 0.9% 1,000 ML IV SCH (18:37)
[2018-04-24] MEDS: Pregabalin 75 MG CAP PO SCH (20:17)
[2018-04-25] MEDS: traMADol HCl 50 MG TAB PO SCH ×3 (00:58→12:31)
[2018-04-25] MEDS: cloNIDine 0.1 MG TAB PO SCH ×4 (00:59→18:17)
[2018-04-25] MEDS: Ciprofloxacin 500 MG TAB PO SCH ×2 (06:51→20:36)
[2018-04-25] MEDS: Ibuprofen 600 MG TAB PO SCH ×3 (06:52→20:36)
[2018-04-25] MEDS: Acetaminophen/Codeine 30-300mg Tablet PO PRN ×2 (09:00→15:16)
[2018-04-25] MEDS: Pregabalin 75 MG CAP PO SCH ×2 (09:02→20:35)
[2018-04-25] MEDS: Senokot S 8.6-50 MG TAB PO SCH ×2 (09:02→20:40)
[2018-04-25] MEDS: Ferrous Sulfate 325 MG TAB PO SCH ×2 (09:02→18:12)
[2018-04-25] MEDS: Metoprolol Tartrate 25 MG TAB PO SCH ×2 (09:02→20:39)
[2018-04-25] MEDS: Polyethylene Glycol 3350 17 GM Packet PO SCH (09:03)
[2018-04-25] MEDS: Bisacodyl 10 MG SUPP PR SCH (09:03)
[2018-04-25] MEDS: Ascorbic Acid 500 mg Chewable Tablet PO SCH ×2 (09:03→20:41)
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
[2018-04-25] MEDS: Acetaminophen/Codeine 30-300mg Tablet PO SCH ×4 (12:32→20:38)
--- NOTE | 2018-04-25 21:08 | PRG ---
DATE OF SERVICE: 04/25/2018 Jose Miguel Reid PA-C dictating for Dr. Danilo Canada. POSTOPERATIVE NOTE Mr. Arceo is now postoperative day #8, having undergone right-sided craniotomy and epidural hematoma evacuation. The patient continues to slowly improve. He does complain of intermittent headaches, al though they are slowly improving. Currently, he complains of headache behind the eyes. Again, his c urrent pain medication seemed to intermittently help with the pain as well. He is more alert today t hoyos what I have seen him and he is able to open his eyes and keep them open. He has good strength in the bilateral upper and bilateral lower extremities. He denies any otorrhea, rhinorrhea, or salty t aste in the back of his mouth. There is no clinical evidence for delayed CSF leakage. At this time, Neurosurgery will sign off on the patient with the understanding that the patient's palma will nee d to come out 14 to 17 days postop. Should he be out of facility, they may be removed there; if he i s still in the hospital when his palma are ready to be removed, we can remove them while he is inpa tient. Otherwise, we will schedule a postoperative followup for the patient. The patient is improvi ng significantly neurologically. We are pleased with his progress. Please call with any changes in patient's neurologic status or any questions.
[2018-04-26] MEDS: cloNIDine 0.1 MG TAB PO SCH ×4 (00:10→17:49)
[2018-04-26] MEDS: Acetaminophen/Codeine 30-300mg Tablet PO PRN ×3 (00:11→22:08)
[2018-04-26] MEDS: Ibuprofen 600 MG TAB PO SCH ×3 (04:19→22:07)
[2018-04-26] MEDS: Acetaminophen/Codeine 30-300mg Tablet PO SCH ×4 (04:19→22:08)
[2018-04-26] MEDS: Ciprofloxacin 500 MG TAB PO SCH ×2 (06:52→22:08)
[2018-04-26] MEDS: Ascorbic Acid 500 mg Chewable Tablet PO SCH ×2 (09:07→22:08)
[2018-04-26] MEDS: Pregabalin 75 MG CAP PO SCH ×2 (09:07→22:09)
[2018-04-26] MEDS: Metoprolol Tartrate 25 MG TAB PO SCH ×2 (09:07→22:08)
[2018-04-26] MEDS: Ferrous Sulfate 325 MG TAB PO SCH ×2 (09:08→17:49)
[2018-04-26] MEDS: Polyethylene Glycol 3350 17 GM Packet PO SCH (09:08)
[2018-04-26] MEDS: Senokot S 8.6-50 MG TAB PO SCH ×2 (09:08→22:08)
[2018-04-26] MEDS: Bisacodyl 10 MG SUPP PR SCH (09:52)
[2018-04-26] MEDS ORDERED: Magnesium Citrate 300 ML BOT PO SCH (11:00)
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
[2018-04-26] MEDS: Aluminum & Magnesium Hydroxide 60 ML, Lidocaine 2% Viscous Solution 30 ML, diphenhydrAM... SSW PRN (19:10)
[2018-04-27] MEDS: cloNIDine 0.1 MG TAB PO SCH ×4 (00:37→18:24)
[2018-04-27] MEDS: Acetaminophen/Codeine 30-300mg Tablet PO PRN ×2 (04:46→10:42)
[2018-04-27] MEDS: Acetaminophen/Codeine 30-300mg Tablet PO SCH ×4 (04:46→20:35)
[2018-04-27] MEDS: Ibuprofen 600 MG TAB PO SCH ×3 (04:46→20:34)
[2018-04-27] MEDS: Ciprofloxacin 500 MG TAB PO SCH ×2 (06:59→20:33)
[2018-04-27] MEDS: Polyethylene Glycol 3350 17 GM Packet PO SCH (10:43)
[2018-04-27] MEDS: Pregabalin 75 MG CAP PO SCH ×2 (10:43→20:34)
[2018-04-27] MEDS: Ascorbic Acid 500 mg Chewable Tablet PO SCH ×2 (10:44→20:35)
[2018-04-27] MEDS: Senokot S 8.6-50 MG TAB PO SCH ×2 (10:45→20:36)
[2018-04-27] MEDS: Metoprolol Tartrate 25 MG TAB PO SCH ×2 (10:45→20:34)
[2018-04-27] MEDS: Bisacodyl 10 MG SUPP PR SCH (10:46)
[2018-04-27] MEDS: Ferrous Sulfate 325 MG TAB PO SCH ×2 (12:46→18:24)
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
[2018-04-28] MEDS: Acetaminophen/Codeine 30-300mg Tablet PO PRN ×3 (00:24→21:22)
[2018-04-28] MEDS: cloNIDine 0.1 MG TAB PO SCH ×4 (00:39→18:04)
[2018-04-28] MEDS: Ibuprofen 600 MG TAB PO SCH ×3 (04:10→21:23)
[2018-04-28] MEDS: Acetaminophen/Codeine 30-300mg Tablet PO SCH ×4 (04:10→21:21)
[2018-04-28] MEDS: Ascorbic Acid 500 mg Chewable Tablet PO SCH ×2 (08:57→21:24)
[2018-04-28] MEDS: Pregabalin 75 MG CAP PO SCH ×2 (08:57→21:22)
[2018-04-28] MEDS: Senokot S 8.6-50 MG TAB PO SCH ×2 (08:57→21:24)
[2018-04-28] MEDS: Metoprolol Tartrate 25 MG TAB PO SCH ×2 (08:58→21:24)
[2018-04-28] MEDS: Ferrous Sulfate 325 MG TAB PO SCH ×2 (08:58→18:03)
[2018-04-28] MEDS: Bisacodyl 10 MG SUPP PR SCH (08:59)
[2018-04-28] MEDS: Polyethylene Glycol 3350 17 GM Packet PO SCH (08:59)
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
[2018-04-29] MEDS: cloNIDine 0.1 MG TAB PO SCH ×4 (00:44→18:29)
[2018-04-29] MEDS: Acetaminophen/Codeine 30-300mg Tablet PO PRN ×3 (02:40→18:36)
[2018-04-29] MEDS: Ibuprofen 600 MG TAB PO SCH ×3 (02:40→20:31)
[2018-04-29] MEDS: Acetaminophen/Codeine 30-300mg Tablet PO SCH ×4 (02:40→22:13)
[2018-04-29] MEDS: Ascorbic Acid 500 mg Chewable Tablet PO SCH ×2 (08:10→20:31)
[2018-04-29] MEDS: Pregabalin 75 MG CAP PO SCH ×2 (08:11→20:34)
[2018-04-29] MEDS: Ferrous Sulfate 325 MG TAB PO SCH ×2 (08:13→18:28)
[2018-04-29] MEDS: Senokot S 8.6-50 MG TAB PO SCH ×2 (08:13→20:31)
[2018-04-29] MEDS: Bisacodyl 10 MG SUPP PR SCH (08:20)
[2018-04-29] MEDS: Metoprolol Tartrate 25 MG TAB PO SCH ×2 (08:21→20:47)
[2018-04-29] MEDS: Polyethylene Glycol 3350 17 GM Packet PO SCH (10:56)
[2018-04-29 12:19] VITALS: BMI 27.1
--- NOTE | 2018-04-29 18:30 | PRG ---
DATE OF SERVICE: 04/29/2018 ATTENDING PHYSICIAN: Dr. Vito Freeman. SUBJECTIVE: Mr. Arceo is a 37-year-old male status post blunt head trauma after a metal object struc k in the head resulting in an epidural hematoma and skull fracture. He is now post-craniotomy for ED H and repair of skull fracture. He is pending worker's compensation approval to be discharged to [facility]. He has been stable on the floor. Pain is well controlled. OBJECTIVE: VITAL SIGNS: Temperature 97.9, pulse 77, respirations 16, O2 sat 99% on room air, blood pressure 101 /60. HEENT: Bilateral periorbital ecchymosis and edema with some conjunctival hemorrhages, resolving. Mariee rgical incision on the right scalp, palma clean, dry, and intact. PULMONARY: Bilateral breath sounds clear. Respirations even and unlabored. CARDIOVASCULAR: Regular rate and rhythm. Heart sounds normal. GASTROINTESTINAL: Abdomen is soft, nontender, nondistended. Bowel sounds normal. NEUROLOGIC: GCS 15. Awake, alert, oriented x3. ASSESSMENT: 1. Status post blunt head trauma. 2. Right epidural hematoma, status post craniotomy and evacuation of epidural hemorrhage and repair of temporal bone fracture. 3. Left clavicle fracture, status post repair. 4. Multi facial and skull fractures, stable. 5. Pseudomonas pneumonia, on antibiotics. 6. Mobilizing with physical and occupational therapy. 7. Pain well controlled with addition of Lyrica on 04/24/2018. PLAN: 1. Continue antibiotics as ordered. 2. Continue incentive spirometry and pulmonary toilet. 3. Continue to encourage mobility and ambulation. 4. Discontinue right surgical scalp palma 14-17 days postoperatively. 5. Continue pain management as ordered. 6. Case management following for discharge planning. The patient is medically cleared to discharge to rehab when insurance approval obtained. The patient was reviewed with Dr. Freeman who agrees with plan.
[2018-04-30] MEDS: cloNIDine 0.1 MG TAB PO SCH ×2 (00:54→05:39)
[2018-04-30] MEDS: Acetaminophen/Codeine 30-300mg Tablet PO PRN (00:57)
[2018-04-30] MEDS: Acetaminophen/Codeine 30-300mg Tablet PO SCH ×3 (04:02→15:14)
[2018-04-30] MEDS: Ibuprofen 600 MG TAB PO SCH ×2 (04:06→13:20)
[2018-04-30] MEDS: Polyethylene Glycol 3350 17 GM Packet PO SCH (08:46)
[2018-04-30] MEDS: Pregabalin 75 MG CAP PO SCH (08:47)
[2018-04-30] MEDS: Ferrous Sulfate 325 MG TAB PO SCH (08:47)
[2018-04-30] MEDS: Senokot S 8.6-50 MG TAB PO SCH (08:47)
[2018-04-30] MEDS: Ascorbic Acid 500 mg Chewable Tablet PO SCH (08:47)
[2018-04-30] MEDS: Bisacodyl 10 MG SUPP PR SCH (08:48)
[2018-04-30 11:45] VITALS: BP 123/84; TEMP 98.5
--- NOTE | 2018-04-30 13:21 | DIS ---
DATE OF ADMISSION: 04/17/2018 DATE OF DISCHARGE: 04/30/2018 ADMISSION DIAGNOSES: 1. Status post blunt force trauma to the head. 2. Severe traumatic brain injury with epidural hematoma. 3. Cerebral edema. 4. Multiple facial fractures. 5. Skull base fracture. 6. Scalp laceration. 7. Acute posttraumatic respiratory failure. 8. Acute electrolyte abnormalities. 9. Left clavicle fracture. DISCHARGE DIAGNOSES: 1. Status post blunt force trauma to the head and upper body. 2. Acute severe traumatic brain injury with epidural hematoma status post right frontotemporal crani otomy and evacuation of hematoma. 3. Acute traumatic pain. 4. Cerebral edema, improving. 5. Multiple facial fractures, stable. 6. Skull base fracture, stable. 7. Scalp laceration. 8. Acute posttraumatic respiratory failure, resolved. 9. Pseudomonas pneumonia. 10. Electrolyte abnormalities, resolved. 11. Acute traumatic pain, stable. CONSULTANTS: 1. Dr. Canada for Neurosurgery. 2. Dr. Jansen, Orthopedic Surgery. 3. Dr. Gill, Oral Maxillofacial Surgery. PROCEDURES: 1. 04/17/2018 - Right frontotemporal craniotomy, evacuation of epidural hematoma and a screw fixatio n of temporal bone fracture with Dr. Wilkes, Neurosurgery. 2. 04/26/2018 - Open reduction internal fixation of left clavicle fracture with Dr. Jansen, Ortho pedic Surgery. HOSPITAL COURSE: This is a 38-year-old male who presented to [facility] after being struck in the head, face and chest with a large heavy metal object at work. He was found to have the above injuri es. He was taken emergently to the operating room for evacuation of his epidural hematoma. Postoper atively, the patient continued to improve. He was evaluated by Oral Surgery who opted for conservati ve management at this time. They plan for outpatient followup of his facial fractures. He was seen by Orthopedic Surgery for his clavicle fracture and underwent open reduction internal fixation of nedra t injury on 04/26/2018. Over the course of his hospitalization, the patient continued to improve cli nically. He completed a course of antibiotics for Pseudomonas pneumonia. He was ambulating and work ing with physical therapy. He continued to have significant cognitive issues status post traumatic b rain injury. He was evaluated by inpatient rehabilitation and accepted after approval from workmen's compensation/insurance on 04/30/2018. At that time, he was medically stable for discharge, pain was controlled with p.o. analgesics. He was tolerating a general diet. DISCHARGE DISPOSITION: Inpatient rehab. DISCHARGE CONDITION: Good. PHYSICAL EXAMINATION: VITAL SIGNS: Temperature 98.5, pulse 85, respirations 16, O2 sat 96% on room air, blood pressure 123 /84. GENERAL: A young male in no acute distress, sitting on edge of bed. HEAD: Scalp palma in place. Left eye laceration is clean and dry. Wound is well approximated wit h no signs of erythema, fluctuance or drainage. PULMONARY: Normal work of breathing, symmetric rise. CARDIOVASCULAR: Regular rate and rhythm. GASTROINTESTINAL: Abdomen is soft, nontender, nondistended. MUSCULOSKELETAL: Moves all extremities x4. NEUROLOGIC: No focal deficit is noted, however, the patient does demonstrate repetitive questioning and concern as well as some increased level of emotional lability. DISCHARGE INSTRUCTIONS: Discharge instructions were provided to the patient and the accepting facili ty. He should not do any heavy lifting or overhead exercises with the left upper extremity. His zachary rosurgical wound palma can be discontinued postop day 14 per discussion with Neurosurgery team. Hi s wound should be kept clean and dry. DISCHARGE MEDICATIONS: Discharge medications were as documented in the electronic medical record, a list of which was provided to the accepting facility. FOLLOWUP APPOINTMENTS: 1. The patient should follow up with Dr. Canada from Neurosurgery once discharged from inpatient [facility]. 2. He should follow up with Dr. Joy from [facility] once discharged from inpatient rehab. 3. He should follow up with Dr. Jansen from Orthopedic Surgery once discharged from inpatient reha b. 4. He does not need to follow up with Trauma Services/Dr. Freeman at this time, but may call our offi ce with any questions. This is merely a summary of the patient's hospitalization. For more in depth information, please see his medical record in its entirety.
--- NOTE | 2018-04-30 13:24 | PRG ---
DATE OF SERVICE: 04/30/2018 INPATIENT PROGRESS NOTE SUBJECTIVE: No acute 24-hour events. The patient is awaiting transfer to rehab facility. The patie nt is doing well with his diet, voiding and ambulating. OBJECTIVE: Vital signs are stable. He is afebrile. His pupils are equal, round, and reactive to li ght and accommodation bilaterally. His extraocular movements are intact. He still does have a large amount of periorbital edema, periorbital ecchymoses as well as subconjunctival chemosis bilaterally. He has no double vision. No enophthalmus at this point. Opening is excellent. His occlusion is g ood. No numbness or paresthesia in the face. He does have a protuberant area of alveolus in the lef t maxillary tuberosity area. ASSESSMENT: The patient is doing well status post work related injury from a metal object with multi ple facial fractures. PLAN: I would like to have the patient follow up in our office in 1 week as of now. Hopefully, the patient will not need orbital floor reconstruction as he has not developed any signs of diplopia or e nophthalmos. He does have an area of concern of protuberant bone in left maxillary tuberosity which may need to be smooth at some point.
--- NOTE | 2018-04-30 18:29 | PRG ---
DATE OF SERVICE: 04/30/2018 Jose Miguel Reid PA-C, dictating for Dr. Danilo Canada. This is for postoperative recheck. Mr. Arceo is now postoperative day 13, having undergone a right-sided craniotomy for epidural hematom a evacuation. The patient continues to improve significantly. He complains of intermittent headache , but overall states that things are significantly improving. He has been occasionally itching his i ncision with washcloth. I have instructed him not to do this anymore. I have removed the patient's palma and he tolerated the procedure well. There is intermittent scabbing throughout the entire in cision, but no dehiscence, drainage, or signs of infection. I have covered the incision. The patien t is stable for rehabilitation from a neurosurgical standpoint. I have again reminded the patient th at once his palma have been removed, they are no longer should be irritating him, but should they b ecome an irritation, he may use an ice pack. I have counseled him several times on not touching his incision, so that it will appropriately healed. He may shower tomorrow, but avoid getting soap withi n the incision. He may wash his remaining hair tomorrow. The incision should remain covered for the most part. Given the fact that the patient has a propensity for touching the incision and again I w ould like it to heal appropriately. We will schedule follow up in the next 2-3 weeks in our clinic o n an outpatient basis and obtain a repeat noncontrast head CT at that time. The patient continues to do well neurosurgically. Please call with any questions or changes in patient's neurologic status.
== END 2018-04-30 16:45 | DRG 25 ==
LOC: ERS 10:11 → EEVIPCON 10:49 → CCU 10:49 → ERS 11:27 → CCU 11:27 → SURG A 04-20 16:22
PROVIDERS: ADMIT Surgery; ATTEND Surgery
PROC: 00C30ZZ Extirpation of Matter from Intracranial Epidural Space, Open Approach (ICD-10-PCS; principal; 2018-04-17)
PROC: 0NS504Z Reposition Right Temporal Bone with Internal Fixation Device, Open Approach (ICD-10-PCS; 2018-04-17)
PROC: 02HV33Z Insertion of Infusion Device into Superior Vena Cava, Percutaneous Approach (ICD-10-PCS; 2018-04-17)
PROC: 0HQ0XZZ Repair Scalp Skin, External Approach (ICD-10-PCS; 2018-04-17)
PROC: 5A1945Z Respiratory Ventilation, 24-96 Consecutive Hours (ICD-10-PCS; 2018-04-17)
PROC: 0BH17EZ Insertion of Endotracheal Airway into Trachea, Via Natural or Artificial Opening (ICD-10-PCS; 2018-04-17)
PROC: 0PSB04Z Reposition Left Clavicle with Internal Fixation Device, Open Approach (ICD-10-PCS; 2018-04-23)
DX: S06.4X9A Epidural hemorrhage with loss of consciousness of unspecified duration, initial encounter (principal); J96.00 Acute respiratory failure, unspecified whether with hypoxia or hypercapnia; J15.1 Pneumonia due to Pseudomonas; S12.500A Unspecified displaced fracture of sixth cervical vertebra, initial encounter for closed fracture; E87.2 Acidosis; D62 Acute posthemorrhagic anemia; S06.1X9A Traumatic cerebral edema with loss of consciousness of unspecified duration, initial encounter; R40.2422 Glasgow coma scale score 9-12, at arrival to emergency department; R40.2434 Glasgow coma scale score 3-8, 24 hours or more after hospital admission; S42.032A Displaced fracture of lateral end of left clavicle, initial encounter for closed fracture; E87.6 Hypokalemia; S02.19XA Other fracture of base of skull, initial encounter for closed fracture; S02.32XA Fracture of orbital floor, left side, initial encounter for closed fracture; S02.31XA Fracture of orbital floor, right side, initial encounter for closed fracture; S02.40FA Zygomatic fracture, left side, initial encounter for closed fracture; S02.40DA Maxillary fracture, left side, initial encounter for closed fracture; S01.01XA Laceration without foreign body of scalp, initial encounter; E83.39 Other disorders of phosphorus metabolism; E83.42 Hypomagnesemia; F43.10 Post-traumatic stress disorder, unspecified; F32.9 Major depressive disorder, single episode, unspecified; F17.210 Nicotine dependence, cigarettes, uncomplicated; W22.8XXA Striking against or struck by other objects, initial encounter; Y92.69 Other specified industrial and construction area as the place of occurrence of the external cause; Y99.0 Civilian activity done for income or pay
CPT/HCPCS: 31500; 36415; 51702; 70450; 70486; 71045; 72125; 74018; 76001; 80048; 80053; 80306; 80307; 81003; 81015; 82805; 83605; 83735; 84100; 85025; 85384; 85610; 85730; 86850; 86900; 86901; 87070; 87077; 87186; 87205; 90471; 94002; 94003; 94640; 94760; 96365; 96374; 96375; 99292; A4216; C1713; C9113; G0390; G8978-GP-CL; G8978-GP-CN; G8979-GP-CI; G8979-GP-CJ; G8987-GO-CN; G8988-GO-CL; G8996-GN-CJ; G8997-GN-CH; G8997-GN-CI; J0131; J0360; J1100; J1170; J1885; J2001; J2060; J2270; J2405; J2543; J2704; J3010; J3475; J3480; J3490; J7050; J7620; J7799; P9012; P9045

== ENCOUNTER 2018-05-15 07:14 | Day surgery (SDC) | payer OTHER ==
[2018-05-14 15:56] VITALS: BMI 28.3
[2018-05-15] MEDS ORDERED: Midazolam HCl 2 mg/2 ml Vial ONE (07:47)
[2018-05-15] MEDS ORDERED: CEFAZOLIN/Water 2 GM/20 ML SYRINGE ONE (07:48)
[2018-05-15] MEDS ORDERED: Fentanyl 100 MCG/2 ML VIAL ONE (08:09)
[2018-05-15] MEDS ORDERED: Bupivacaine PF 0.5% 30 ML VIAL ONE (08:30)
[2018-05-15] MEDS ORDERED: HYDROmorphone 0.5 MG/0.5 ML SYRINGE ONE (09:38)
[2018-05-15] MEDS ORDERED: HYDROcodone/Acetaminophen 5/325 mg Tablet ONE (10:29)
[2018-05-15] MEDS ORDERED: Glycopyrrolate 0.2 MG/ML 5 ML SYRINGE ONE (11:55)
[2018-05-15] MEDS ORDERED: Lidocaine 1% PF 5 ML VIAL ONE (11:55)
[2018-05-15] MEDS ORDERED: PROPOFOL 200 MG/20 ML VIAL ONE (11:55)
--- NOTE | 2018-05-15 15:37 | OP ---
DATE OF SURGERY: 05/15/2018 PREOPERATIVE DIAGNOSIS: Symptomatic left clavicle hardware with draining posterior wound. POSTOPERATIVE DIAGNOSIS: Symptomatic left clavicle hardware with draining posterior wound. SURGICAL PROCEDURE: 1. Irrigation and debridement of left posterior shoulder wound including skin and subcutaneous tissu e. 2. Revision of left clavicle Yenny pin. ANESTHESIA: General. SURGEON: Yung Jansen M.D. BLOOD LOSS: 5 mL SPECIMEN: None. DRAINS: None. COMPLICATIONS: None. OUTCOME: Satisfactory. INDICATIONS: Mr. Arceo is a 38-year-old gentleman, status post severe head injury in addition to a l eft clavicle fracture with displacement. This clavicle fracture was treated with open reduction and internal fixation using a Yenny pin. At the time of surgery, patient was found to have severe swe lling of the shoulder. As his swelling has decreased, he now has prominence of the [place] pin post eriorly, which is now eroded through the skin with a small pinhole opening and some serous drainage. After discussion with patient including risks and benefits, we decided to proceed with irrigation of the small open wound and shortening of the [place] pin. Informed consent has been obtained. I bel ieve all questions answered. PROCEDURE IN DETAIL: After the induction of general anesthesia, the patient was positioned in a semi -beach chair position, then a sterile prep and drape was performed of the left shoulder. The small p in hole was increased in size with a scalpel vertically. There was really no necrotic tissue to be d ebrided; however, following the incision, the subcutaneous tissue was inspected and again free of any necrotic tissue or purulence. At this point, the wound was irrigated with bulb syringe. Next, the prominent Yenny pin was manipulated such that a pin cutter could be passed over the tip of the Yg [place]wood pin shortening it by approximately 3/8 of an inch. Once done, the pin was no longer rubbing up directly underneath the skin. The wound was again irrigated with normal saline and bulb syringe and then closed with a 4-0 nylon interrupted horizontal mattress fashion. A Xeroform gauze tape dressin g was applied to the shoulder and then patient was transferred to recovery room in stable condition. There were no complications and he tolerated the procedure well.
--- NOTE | 2018-05-15 18:28 | RAD ---
LEFT CLAVICLE: 05/15/18 One view. A single fluoroscopic view from OR presented. INDICATIONS: Intraoperative imaging during open reduction internal fixation of left clavicle from left clavicle fr acture. FINDINGS: This single view reveals metallic pin transfixing the left clavicle. POS: [facility]
== END 2018-05-15 11:19 | disposition home or self-care (01) ==
LOC: SDC 07:14
PROVIDERS: ATTEND Orthopaedic Surgery
PROC: 0PW Upper Bones, Revision (ICD-10-PCS; principal; 2018-05-15)
DX: T84.298A Other mechanical complication of internal fixation device of other bones, initial encounter (principal); S42.022D Displaced fracture of shaft of left clavicle, subsequent encounter for fracture with routine healing; F17.210 Nicotine dependence, cigarettes, uncomplicated; F41.9 Anxiety disorder, unspecified; F32.9 Major depressive disorder, single episode, unspecified; Z79.899 Other long term (current) drug therapy
CPT/HCPCS: 76000; 96374; J1170; J2001; J2250; J2704; J3010; S0020

== ENCOUNTER 2018-05-24 13:10 | Outpatient (CLI) | payer OTHER ==
--- NOTE | 2018-05-24 13:58 | CT ---
HEAD CT WITHOUT CONTRAST: Date: 05/24/18 COMPARISON: 04/18/18. HISTORY: Evaluate for intracranial hemorrhage following surgery. TECHNIQUE: Serial axial CT imaging is obtained at 4.5 mm intervals from vertex through skull base without contra st. FINDINGS: There is opacification of the sphenoid sinus on the right. There is a fracture involving the skull ba se on the left, including the floor of the middle cranial fossa, with involvement of the lateral wall of the left sphenoid sinus, a stable finding. Obliquely oriented fracture of the right temporal bone at the lateral floor of the middle cranial fossa on the right again noted as well. Stable craniotomy changes are present on the right. There is stable opacification of the right mastoid air cells. Left mastoid air cells are well aerated. The prior examination demonstrate an area of hemorrhage within the inferior aspect of the anterior cr anial fossa on the left, which has resolved. There is linear subdural hyperdensity deep to the calvar ial defect on the right which could represent minimal residual right subdural hemorrhage or dural thi ckening. No new hemorrhage. No midline shift or mass effect. IMPRESSION: Mild linear increased density in the right subdural space subjacent to the calvarial defect. Multiple fracture deformities, not significantly changed. POS: [facility]
== END 2018-05-24 13:11 | disposition home or self-care (01) ==
LOC: TBSIIMAG 13:10
PROVIDERS: ATTEND Surgery
DX: S06.4X9A Epidural hemorrhage with loss of consciousness of unspecified duration, initial encounter (principal); G93.89 Other specified disorders of brain
CPT/HCPCS: 70450

== ENCOUNTER 2018-06-25 09:41 | Day surgery (SDC) | payer OTHER ==
[2018-06-24 11:23] VITALS: BMI 26.5
[2018-06-25] MEDS ORDERED: CEFAZOLIN/Water 2 GM/20 ML SYRINGE ONE (10:32)
[2018-06-25] MEDS ORDERED: Midazolam HCl 2 mg/2 ml Vial ONE (11:02)
[2018-06-25] MEDS ORDERED: Lidocaine 1% (PF) 30 ML VIAL ONE (11:03)
[2018-06-25] MEDS ORDERED: Fentanyl 100 MCG/2 ML VIAL ONE ×2 (11:10→12:31)
--- NOTE | 2018-06-25 12:17 | OP ---
DATE OF SURGERY: 06/25/2018 PREOPERATIVE DIAGNOSIS: Symptomatic retained hardware, left clavicle. POSTOPERATIVE DIAGNOSIS: Symptomatic retained hardware, left clavicle. SURGICAL PROCEDURE: Removal of Yenny pin from left clavicle. ANESTHESIA: General. SURGEON: Yung Jansen M.D. BLOOD LOSS: Less than 5 mL. SPECIMENS: 1. Explanted [place] pin. 2. Sterile processing. COMPLICATIONS: None. DRAINS: None. OUTCOME: Satisfactory. INDICATIONS: The patient is a 38-year-old gentleman status post work injury sustaining severe head i njury as well as left clavicle fracture. The patient is now status post Yenny pin stabilization f or this fracture, which has gone on to uneventful union. The patient is now having symptoms from the prominent posterior pin and as such scheduled for removal. Informed consent has been obtained. Isaac winn all questions have been answered. DESCRIPTION OF PROCEDURE: After the induction of general anesthesia, the patient was positioned supi ne on the OR table with a bump placed under the left scapula and then a sterile prep and drape was pe rformed of the left shoulder. Next, using the scar from the posterior pin placement site, the skin w as incised vertically and then the end of the pin could be easily palpated. There was a small seroma over the distal end of the pin. Next, the medial clavicle wrench was passed over the pin capturing the knot and then the pin with medial and lateral nuts were removed without difficulty. The wound wa s then irrigated with bulb syringe and normal saline and then closed with 4-0 Prolene in horizontal m attress fashion. Skin edges were anesthetized with 10 mL of 1% lidocaine and then a gauze and tape d ressing was applied to the shoulder. The patient was then transferred to recovery room in stable con dition. There were no complications. He tolerated the procedure well.
[2018-06-25] MEDS ORDERED: Ketorolac Tromethamine 30 MG/ML VIAL ONE (12:31)
--- NOTE | 2018-06-25 14:27 | RAD ---
INTRAOPERATIVE RADIOGRAPH LEFT CLAVICLE: FINDINGS: AP intraoperative radiograph demonstrates an area of lucency remaining in the mid left clavicle. Intr aosseous hardware has been removed. IMPRESSION: Removal of left clavicular hardware. POS: [facility]
[2018-06-25] MEDS ORDERED: PROPOFOL 200 MG/20 ML VIAL ONE (15:13)
[2018-06-25] MEDS ORDERED: Ondansetron HCl/PF 4 MG/2 ML Vial ONE (15:13)
[2018-06-25] MEDS ORDERED: Lidocaine 1% PF 5 ML VIAL ONE (15:13)
== END 2018-06-25 14:07 | disposition home or self-care (01) ==
LOC: SDC 09:41
PROVIDERS: ATTEND Orthopaedic Surgery
PROC: 0PPB04Z Removal of Internal Fixation Device from Left Clavicle, Open Approach (ICD-10-PCS; principal; 2018-06-25)
DX: T84.84XA Pain due to internal orthopedic prosthetic devices, implants and grafts, initial encounter (principal); F41.8 Other specified anxiety disorders; G47.00 Insomnia, unspecified; F17.210 Nicotine dependence, cigarettes, uncomplicated; Z87.820 Personal history of traumatic brain injury; Z79.899 Other long term (current) drug therapy
CPT/HCPCS: 76000; J1885; J2001; J2250; J2405; J2704; J3010